=== PATIENT | female | born 1945 | race Caucasian/White ===

== ENCOUNTER 2017-11-17 15:59 | Emergency (ER) | payer MEDICARE ==
[2017-11-17 16:12] VITALS: BP 188/84; PULSE 99; RESP 18; TEMP 98.5
--- NOTE | 2017-11-17 16:39 | ED ---
ENT HPI - General Chief complaint: ENT Stated complaint: ENT Time Seen by Provider: 11/17/17 16:20 Source: patient, RN notes reviewed Mode of arrival: ambulatory Limitations: no limitations - History of Present Illness Initial comments: This is a 72-year-old female who presents to the emergency department with chief complaint of oral fungal infection. Patient states that she developed white sores in her mouth and was placed on nystatin 3 days ago. She states that she's been taking this medication daily for 3 days and has noted no improvement. She also complains of sores on bilateral lip creases. She states that she would like an oral antifungal medication. Denies fever, chills, chest pain, shortness of breath, abdominal pain, nausea or vomiting, constipation or diarrhea, dysuria or hematuria, numbness or tingling, headache or vision changes. - Related Data Previous Rx's Medication Instructions Recorded Fluconazole [Diflucan] 100 mg PO DAILY #14 tab 11/17/17 Allergies Allergy/AdvReac Type Severity Reaction Status Date / Time No Known Allergies Allergy Verified 11/17/17 16:12 Review of Systems ROS Statement: Those systems with pertinent positive or pertinent negative responses have been documented in the HPI. ROS Other: All systems not noted in ROS Statement are negative. Past Medical History Past Medical History: Hypertension History of Any Multi-Drug Resistant Organisms: None Reported Past Surgical History: No Surgical Hx Reported Past Psychological History: No Psychological Hx Reported Smoking Status: Never smoker Past Alcohol Use History: None Reported Past Drug Use History: None Reported General Exam - General Exam Comments Initial Comments: General: Awake and alert, well-developed; in no apparent distress. HEENT: Head atraumatic, normocephalic. Pupils are equal, round and reactive to light. Extraocular movements intact. Oropharynx moist without erythema. White, curd-like plaques at the base of the tongue. Erythema bilateral oral commissures. Neck: Supple. Normal ROM. Cardiovascular: Regular rate and rhythm. No murmurs, rubs or gallops. Chest symmetrical. Respiratory: Lungs clear to auscultation bilaterally. No wheezes, rales or rhonchi. Normal respiratory effort with no use of accessory muscles. Musculoskeletal: Normal ROM, no tenderness bilateral upper and lower extremities. Ambulating normally. Skin: [place], warm and dry without rashes or lesions. Neurological: Alert and oriented x3. CN II-XII grossly intact. Speech is fluent and answers are appropriate. No focal neuro deficits. Psychiatric: Normal mood and affect. No overt signs of depression or anxiety noted. Limitations: no limitations Course Vital Signs 11/17/17 16:08 Temperature 98.5 F Pulse Rate 99 Respiratory 18 Rate Blood Pressure 188/84 O2 Sat by Pulse 100 Oximetry Medical Decision Making - Medical Decision Making This is a 72-year-old female who presents to the emergency department with chief complaint of thrush. Patient states she was started on nystatin suspension 3 days ago and feels like it is not working. She requests to have an oral medication. On physical examination, there is mild white-like plaques on the base of the tongue with angular chelitis noted. Patient will be started on Diflucan. Patient is in no acute distress and will be discharged home at this time. She is in agreement with plan and voices understanding. All questions answered. Disposition Clinical Impression: Oral thrush Disposition: HOME SELF-CARE Condition: Good Instructions: Oral Candidiasis (ED) Additional Instructions: Please take medications as prescribed. Please follow up with primary care provider within 1-2 days. Return to emergency department if symptoms should worsen or any concerns arise. Prescriptions: Fluconazole [Diflucan] 100 mg PO DAILY #14 tab Is patient prescribed a controlled substance at d/c from ED?: No Referrals: Chano Reeves MD [Primary Care Provider] - 1-2 days Time of Disposition: 16:42
== END 2017-11-17 16:50 | disposition home or self-care (01) ==
LOC: EC 15:59
DX: B37.0 Candidal stomatitis (principal)
CPT/HCPCS: 99282

== ENCOUNTER 2018-05-27 03:36 | Emergency (ER) | payer MEDICARE ==
--- NOTE | 2018-05-27 04:00 | ED ---
General Adult HPI - General Chief complaint: Recheck/Abnormal Lab/Rx Stated complaint: Not feeling well Time Seen by Provider: 05/27/18 03:59 Source: patient Mode of arrival: ambulatory Limitations: no limitations - History of Present Illness Initial comments: Katy is a pleasant 72-year-old female who presents to the ER with a complaint that she has not been able to sleep for 2 days duration because she constantly feels the urge to urinate. She reports urinary frequency and mild dysuria. [place] any associated fevers, chills, nausea or vomiting. She can't recall the last time she had a urinary tract infection. She does not follow with the urologist. She reports that she's been up all night urinating every 5 minutes and just feels overwhelmingly fatigued from this. - Related Data Previous Rx's Medication Instructions Recorded Fluconazole [Diflucan] 100 mg PO DAILY #14 tab 11/17/17 Nitrofurantoin Monohyd/M-Cryst 100 mg PO Q12HR 5 Days #10 cap 05/27/18 [Macrobid] Phenazopyridine HCl [Pyridium] 100 mg PO TID #9 tab 05/27/18 Allergies Allergy/AdvReac Type Severity Reaction Status Date / Time antibiotics AdvReac Unknown Uncoded 05/27/18 03:53 Review of Systems ROS Statement: Those systems with pertinent positive or pertinent negative responses have been documented in the HPI. ROS Other: All systems not noted in ROS Statement are negative. Past Medical History Past Medical History: Hypertension History of Any Multi-Drug Resistant Organisms: None Reported Past Surgical History: No Surgical Hx Reported Past Psychological History: No Psychological Hx Reported Smoking Status: Never smoker Past Alcohol Use History: None Reported Past Drug Use History: None Reported General Exam - General Exam Comments Initial Comments: Physical Exam GENERAL: Patient is well-developed and well-nourished. Patient is nontoxic and well- hydrated and is in no distress. HENT: Normocephalic, Atraumatic. EYES: PERRL, EOMI PULMONARY: Unlabored respirations. No audible rales rhonchi or wheezing was noted. CARDIOVASCULAR: There is a regular rate and rhythm without any murmurs gallops or rubs. ABDOMEN: Soft and nontender with normal bowel sounds. No flank pain SKIN: Skin is clear with no lesions or rashes and otherwise unremarkable. : Deferred NEUROLOGIC: Patient is alert and oriented x3. Moving all extremities spontaneously MUSCULOSKELETAL: Normal extremities with adequate strength and full range of motion. No lower extremity swelling or edema. No calf tenderness. PSYCHIATRIC: Normal psychiatric evaluation. Limitations: no limitations Limitations: no limitations Course Vital Signs 05/27/18 05/27/18 03:46 05:24 Temperature 98.4 F 98 F Pulse Rate 72 76 Respiratory 16 19 Rate Blood Pressure 187/76 166/98 O2 Sat by Pulse 99 99 Oximetry Medical Decision Making - Medical Decision Making The patient was seen and evaluated, history was obtained from the patient Patient with urinary frequency, hesitancy and dysuria Urinalysis is suggestive of urinary tract infection A sign patient requesting medication to help her sleep, advised her that we'll start antibiotics and treat her with Pyridium for the dysuria which will make her much more comfortable and her to sleep. Dose of Macrobid and Pyridium given in the emergency department Patient was advised to drink plenty of fluids stay well-hydrated. Return parameters were discussed patient was discharged home in stable condition with prescriptions for Pyridium and Macrobid. - Lab Data Result diagrams: 05/27/18 04:50 Lab Results 05/27/18 05/27/18 05/27/18 Range/Units 04:30 04:50 04:50 WBC 7.7 (3.8-10.6) k/uL RBC 4.62 (3.80-5.40) m/uL Hgb 13.6 (11.4-16.0) gm/dL Hct 40.8 (34.0-46.0) % MCV 88.4 (80.0-100.0) fL MCH 29.5 (25.0-35.0) pg MCHC 33.4 (31.0-37.0) g/dL RDW 12.4 (11.5-15.5) % Plt Count 206 (150-450) k/uL Neutrophils % 78 % Lymphocytes % 15 % Monocytes % 5 % Eosinophils % 1 % Basophils % 0 % Neutrophils # 6.0 (1.3-7.7) k/uL Lymphocytes # 1.1 (1.0-4.8) k/uL Monocytes # 0.4 (0-1.0) k/uL Eosinophils # 0.1 (0-0.7) k/uL Basophils # 0.0 (0-0.2) k/uL NT-Pro-B Natriuret Pep 285 pg/mL Urine Color Light Yellow Urine Appearance Clear (Clear) Urine pH 5.5 (5.0-8.0) Ur Specific [place] 1.014 (1.001-1.035) Urine Protein Negative (Negative) Urine Glucose (UA) 3+ H (Negative) Urine Ketones Negative (Negative) Urine Blood Negative (Negative) Urine Nitrite Negative (Negative) Urine Bilirubin Negative (Negative) Urine Urobilinogen <2.0 (<2.0) mg/dL Ur Leukocyte Esterase Moderate H (Negative) Urine RBC 1 (0-5) /hpf Urine WBC 17 H (0-5) /hpf Ur Squamous Epith Cells <1 (0-4) /hpf Hyaline Casts 1 (0-2) /lpf Urine Mucus Rare H (None) /hpf Disposition Clinical Impression: UTI (urinary tract infection) Disposition: HOME SELF-CARE Condition: Good Prescriptions: Nitrofurantoin Monohyd/M-Cryst [Macrobid] 100 mg PO Q12HR 5 Days #10 cap Phenazopyridine HCl [Pyridium] 100 mg PO TID #9 tab Is patient prescribed a controlled substance at d/c from ED?: No Referrals: None,Stated [REFERRING] - 1-2 days
[2018-05-27 04:41] LABS: Appearance,Urine Clear (Clear); Bilirubin,Urine Negative (Negative); Blood,Urine Negative (Negative); Color,Urine Light Yellow; Glucose,Urine (UA) 3+ (Negative); Hyaline Casts,Urine 1 /lpf (0-2); Ketones,Urine Negative (Negative); Leukocyte Esterase,Urine Moderate (Negative); Mucus,Urine Rare /hpf; Nitrite,Urine Negative (Negative); PH, Urine 5.5 (5.0-8.0); Protein,Urine Negative (Negative); RBC,Urine 1 /hpf (0-5); Specific Gravity,Urine 1.014 (1.001-1.035); Squamous Epithelial Cell,Urine <1 /hpf (0-4); Urobilinogen,Urine <2.0 mg/dL (<2.0); WBC,Urine 17 /hpf (0-5)
[2018-05-27] MEDS ORDERED: NITROFURANTOIN MONOHYD/M-CRYST 100 MG CAP PO STA (04:51)
[2018-05-27] MEDS ORDERED: PHENAZOPYRIDINE 100 MG TAB PO STA (05:02)
[2018-05-27 05:10] LABS: Basophils % (A) 0 %; Eosinophils # (A) 0.1 k/uL (0-0.7); Eosinophils % (A) 1 %; HCT 40.8 % (34.0-46.0); HGB 13.6 gm/dL (11.4-16.0); Lymphocytes # (A) 1.1 k/uL (1.0-4.8); Lymphocytes % (A) 15 %; MCH 29.5 pg (25.0-35.0); MCHC 33.4 g/dL (31.0-37.0); MCV 88.4 fL (80.0-100.0); Mean Platelet Volume 6.2; Monocytes # (A) 0.4 k/uL (0-1.0); Monocytes % (A) 5 %; Neutrophils % (A) 78 %; Platelet Count 206 k/uL (150-450); RBC 4.62 m/uL (3.80-5.40); RDW 12.4 % (11.5-15.5); WBC 7.7 k/uL (3.8-10.6)
[2018-05-27 05:36] VITALS: BP 166/98; PULSE 76; RESP 19; TEMP 98
== END 2018-05-27 05:25 | disposition home or self-care (01) ==
LOC: EC 03:36
DX: N39.0 Urinary tract infection, site not specified (principal); R53.83 Other fatigue; Z88.1 Allergy status to other antibiotic agents
CPT/HCPCS: 36415; 81001; 83880; 85025; 99283

== ENCOUNTER 2018-05-30 07:40 | Emergency (ER) | payer MEDICARE ==
[2018-05-30 07:55] VITALS: PULSE 93; RESP 18; TEMP 98.6
[2018-05-30] MEDS ORDERED: ONDANSETRON 4 MG/2 ML VIAL IVP STA (08:09)
[2018-05-30] MEDS ORDERED: PANTOPRAZOLE 40 MG/10 ML VIAL IVP STA (08:09)
[2018-05-30] MEDS ORDERED: SODIUM CHLORIDE 0.9% 1,000 ML IV STA (08:09)
[2018-05-30] MEDS ORDERED: MORPHINE SULFATE 4 MG/ML SYRINGE IV STA (08:09)
--- NOTE | 2018-05-30 08:09 | ED ---
Abdominal Pain HPI - General Chief Complaint: Abdominal Pain Stated Complaint: UTI Time Seen by Provider: 05/30/18 07:52 Source: patient, EMS, RN notes reviewed, old records reviewed Mode of arrival: EMS Limitations: no limitations - History of Present Illness Initial Comments: This is a 72-year-old female the ER for evaluation. Patient was essay for evaluation of nonspecific abdominal pain difficulty sleeping. Patient has no significant surgical history no nausea vomiting no fevers no diarrheal issues or difficulty with urination. Patient was recently treated for urinary tract infection, no other recent medication changes. Patient does admit to some anxiety and difficulty sleeping secondary to anxiety. MD Complaint: abdominal pain -: week(s), month(s) Location: diffuse Radiation: none Migration to: no migration Severity: mild Severity scale (1-10): 2 Quality: aching Consistency: intermittent, now resolved Improves With: nothing Worsens With: nothing Associated Symptoms: nausea - Related Data Previous Rx's Medication Instructions Recorded Fluconazole [Diflucan] 100 mg PO DAILY #14 tab 11/17/17 Nitrofurantoin Monohyd/M-Cryst 100 mg PO Q12HR 5 Days #10 cap 05/27/18 [Macrobid] Phenazopyridine HCl [Pyridium] 100 mg PO TID #9 tab 05/27/18 Allergies Allergy/AdvReac Type Severity Reaction Status Date / Time antibiotics AdvReac Unknown Uncoded 05/27/18 03:53 Review of Systems ROS Statement: Those systems with pertinent positive or pertinent negative responses have been documented in the HPI. ROS Other: All systems not noted in ROS Statement are negative. Past Medical History Past Medical History: Hypertension History of Any Multi-Drug Resistant Organisms: None Reported Past Surgical History: No Surgical Hx Reported Past Psychological History: No Psychological Hx Reported Smoking Status: Never smoker Past Alcohol Use History: None Reported Past Drug Use History: None Reported General Exam Limitations: no limitations General appearance: alert, in no apparent distress Head exam: Present: atraumatic, normocephalic, normal inspection Eye exam: Present: normal appearance, PERRL, EOMI. Absent: scleral icterus, conjunctival injection, periorbital swelling ENT exam: Present: normal exam, mucous membranes moist Neck exam: Present: normal inspection. Absent: tenderness, meningismus, lymphadenopathy Respiratory exam: Present: normal lung sounds bilaterally. Absent: respiratory distress, wheezes, rales, rhonchi, stridor Cardiovascular Exam: Present: regular rate, normal rhythm, normal heart sounds. Absent: systolic murmur, diastolic murmur, rubs, gallop, clicks GI/Abdominal exam: Present: soft, normal bowel sounds. Absent: distended, tenderness, guarding, rebound, rigid Extremities exam: Present: normal inspection, full ROM, normal capillary refill. Absent: tenderness, pedal edema, joint swelling, calf tenderness Back exam: Present: normal inspection Neurological exam: Present: alert, oriented X3, CN II-XII intact Psychiatric exam: Present: normal affect, normal mood Skin exam: Present: warm, dry, intact, normal color. Absent: rash Course Vital Signs 05/30/18 07:52 Temperature 98.6 F Pulse Rate 93 Respiratory 18 Rate Blood Pressure 170/86 O2 Sat by Pulse 99 Oximetry - Reevaluation(s) Reevaluation #1: 05/30/18 10:37 Medical record is reviewed Reevaluation #2: 05/30/18 10:37 Spoke with patient at length, patient at this time is admitting is having anxiety and difficulty sleeping. We'll treat patient appropriately Medical Decision Making - Medical Decision Making 72-year-old female the ER for evaluation nonspecific abdominal pain. Likely anxiety related in nature with difficulty sleeping. Patient be discharged home to follow-up with family care for further evaluation of mental health - Lab Data Result diagrams: 05/30/18 08:31 05/30/18 08:31 Lab Results 05/30/18 05/30/18 05/30/18 Range/Units 08:23 08:31 08:31 WBC (3.8-10.6) k/uL RBC (3.80-5.40) m/uL Hgb (11.4-16.0) gm/dL Hct (34.0-46.0) % MCV (80.0-100.0) fL MCH (25.0-35.0) pg MCHC (31.0-37.0) g/dL RDW (11.5-15.5) % Plt Count (150-450) k/uL Neutrophils % % Lymphocytes % % Monocytes % % Eosinophils % % Basophils % % Neutrophils # (1.3-7.7) k/uL Lymphocytes # (1.0-4.8) k/uL Monocytes # (0-1.0) k/uL Eosinophils # (0-0.7) k/uL Basophils # (0-0.2) k/uL Sodium 136 L (137-145) mmol/L Potassium 4.5 (3.5-5.1) mmol/L Chloride 103 (98-107) mmol/L Carbon Dioxide 23 (22-30) mmol/L Anion Gap 10 mmol/L BUN 23 H (7-17) mg/dL Creatinine 0.67 (0.52-1.04) mg/dL Est GFR (CKD-EPI)AfAm >90 (>60 ml/min/1.73 sqM) Est GFR (CKD-EPI)NonAf 90 (>60 ml/min/1.73 sqM) Glucose 217 H (74-99) mg/dL Plasma Lactic Acid [place] (0.7-2.0) mmol/L Calcium 9.8 (8.4-10.2) mg/dL Phosphorus 3.6 (2.5-4.5) mg/dL Magnesium 1.7 (1.6-2.3) mg/dL Total Bilirubin 0.3 (0.2-1.3) mg/dL AST 19 (14-36) U/L ALT 20 (9-52) U/L Alkaline Phosphatase 62 (38-126) U/L Total Creatine Kinase 31 (30-135) U/L CK-MB (CK-2) 0.7 (0.0-2.4) ng/mL CK-MB (CK-2) Rel Index 2.3 Troponin I <0.012 (0.000-0.034) ng/mL Total Protein 6.9 (6.3-8.2) g/dL Albumin 3.9 (3.5-5.0) g/dL Amylase 71 (30-110) U/L Lipase 294 (23-300) U/L Urine Color Light Yellow Urine Appearance Clear (Clear) Urine pH 5.5 (5.0-8.0) Ur Specific [place] 1.008 (1.001-1.035) Urine Protein Negative (Negative) Urine Glucose (UA) 3+ H (Negative) Urine Ketones Negative (Negative) Urine Blood Negative (Negative) Urine Nitrite Negative (Negative) Urine Bilirubin Negative (Negative) Urine Urobilinogen <2.0 (<2.0) mg/dL Ur Leukocyte Esterase Moderate H (Negative) Urine RBC 1 (0-5) /hpf Urine WBC 1 (0-5) /hpf Ur Squamous Epith Cells <1 (0-4) /hpf Urine Mucus Rare H (None) /hpf 05/30/18 05/30/18 Range/Units 08:31 08:31 WBC 8.0 (3.8-10.6) k/uL RBC 4.72 (3.80-5.40) m/uL Hgb 13.7 (11.4-16.0) gm/dL Hct 42.1 (34.0-46.0) % MCV 89.2 (80.0-100.0) fL MCH 29.0 (25.0-35.0) pg MCHC 32.5 (31.0-37.0) g/dL RDW 12.5 (11.5-15.5) % Plt Count 226 (150-450) k/uL Neutrophils % 77 % Lymphocytes % 15 % Monocytes % 5 % Eosinophils % 1 % Basophils % 0 % Neutrophils # 6.1 (1.3-7.7) k/uL Lymphocytes # 1.2 (1.0-4.8) k/uL Monocytes # 0.4 (0-1.0) k/uL Eosinophils # 0.1 (0-0.7) k/uL Basophils # 0.0 (0-0.2) k/uL Sodium (137-145) mmol/L Potassium (3.5-5.1) mmol/L Chloride (98-107) mmol/L Carbon Dioxide (22-30) mmol/L Anion Gap mmol/L BUN (7-17) mg/dL Creatinine (0.52-1.04) mg/dL Est GFR (CKD-EPI)AfAm (>60 ml/min/1.73 sqM) Est GFR (CKD-EPI)NonAf (>60 ml/min/1.73 sqM) Glucose (74-99) mg/dL Plasma Lactic Acid [place] 1.1 (0.7-2.0) mmol/L Calcium (8.4-10.2) mg/dL Phosphorus (2.5-4.5) mg/dL Magnesium (1.6-2.3) mg/dL Total Bilirubin (0.2-1.3) mg/dL AST (14-36) U/L ALT (9-52) U/L Alkaline Phosphatase (38-126) U/L Total Creatine Kinase (30-135) U/L CK-MB (CK-2) (0.0-2.4) ng/mL CK-MB (CK-2) Rel Index Troponin I (0.000-0.034) ng/mL Total Protein (6.3-8.2) g/dL Albumin (3.5-5.0) g/dL Amylase (30-110) U/L Lipase (23-300) U/L Urine Color Urine Appearance (Clear) Urine pH (5.0-8.0) Ur Specific [place] (1.001-1.035) Urine Protein (Negative) Urine Glucose (UA) (Negative) Urine Ketones (Negative) Urine Blood (Negative) Urine Nitrite (Negative) Urine Bilirubin (Negative) Urine Urobilinogen (<2.0) mg/dL Ur Leukocyte Esterase (Negative) Urine RBC (0-5) /hpf Urine WBC (0-5) /hpf Ur Squamous Epith Cells (0-4) /hpf Urine Mucus (None) /hpf - Radiology Data Radiology results: report reviewed (CT abdomen pelvis is negative for acute disease), image reviewed Disposition Clinical Impression: Abdominal pain, Anxiety Disposition: HOME SELF-CARE Condition: Good Instructions: Abdominal Pain (ED), Anxiolysis in Adults (ED) Is patient prescribed a controlled substance at d/c from ED?: No Referrals: Chano Reeves MD [Primary Care Provider] - 1-2 days
[2018-05-30 09:08] LABS: Basophils % (A) 0 %; Eosinophils # (A) 0.1 k/uL (0-0.7); Eosinophils % (A) 1 %; HCT 42.1 % (34.0-46.0); HGB 13.7 gm/dL (11.4-16.0); Lymphocytes # (A) 1.2 k/uL (1.0-4.8); Lymphocytes % (A) 15 %; MCHC 32.5 g/dL (31.0-37.0); MCV 89.2 fL (80.0-100.0); Mean Platelet Volume 6.5; Monocytes # (A) 0.4 k/uL (0-1.0); Monocytes % (A) 5 %; Neutrophils # (A) 6.1 k/uL (1.3-7.7); Neutrophils % (A) 77 %; Platelet Count 226 k/uL (150-450); RBC 4.72 m/uL (3.80-5.40); RDW 12.5 % (11.5-15.5)
[2018-05-30 09:10] LABS: ALT 20 U/L (9-52); AST 19 U/L (14-36); Albumin 3.9 g/dL (3.5-5.0); Alkaline Phosphatase 62 U/L (38-126); Amylase 71 U/L (30-110); Anion Gap 10 mmol/L; Blood Urea Nitrogen 23 mg/dL (7-17); Calcium 9.8 mg/dL (8.4-10.2); Carbon Dioxide 23 mmol/L (22-30); Chloride 103 mmol/L (98-107); Glucose 217 mg/dL (74-99); Lipase 294 U/L (23-300); Magnesium 1.7 mg/dL (1.6-2.3); Phosphorus 3.6 mg/dL (2.5-4.5); Sodium 136 mmol/L (137-145); Total Bilirubin 0.3 mg/dL (0.2-1.3); Total Protein 6.9 g/dL (6.3-8.2)
[2018-05-30 09:18] LABS: Appearance,Urine Clear (Clear); Bilirubin,Urine Negative (Negative); Blood,Urine Negative (Negative); Color,Urine Light Yellow; Glucose,Urine (UA) 3+ (Negative); Ketones,Urine Negative (Negative); Leukocyte Esterase,Urine Moderate (Negative); Mucus,Urine Rare /hpf; Nitrite,Urine Negative (Negative); PH, Urine 5.5 (5.0-8.0); Protein,Urine Negative (Negative); RBC,Urine 1 /hpf (0-5); Specific Gravity,Urine 1.008 (1.001-1.035); Squamous Epithelial Cell,Urine <1 /hpf (0-4); Urobilinogen,Urine <2.0 mg/dL (<2.0); WBC,Urine 1 /hpf (0-5)
[2018-05-30 09:24] LABS: Potassium 4.5 mmol/L (3.5-5.1)
[2018-05-30 09:27] LABS: Creatine Kinase 31 U/L (30-135)
[2018-05-30 09:39] LABS: Creatine Kinase MB 0.7 ng/mL (0.0-2.4); Troponin I <0.012 ng/mL (0.000-0.034)
--- NOTE | 2018-05-30 10:10 | CT ---
EXAMINATION TYPE: CT abdomen pelvis w con DATE OF EXAM: 05/30/2018 HISTORY: UTI, distention, RUQ pain CT DLP: 721.3mGycm Automated Exposure Control for Dose Reduction was Utilized. CONTRAST: CT scan of the abdomen and pelvis is performed without oral but with IV Contrast, patient injected wi th 100 mL of Isovue 300. COMPARISON: None FINDINGS: LUNG BASES: There is patchy bibasilar linear scarring and/or atelectasis. LIVER/GB: No significant abnormality is appreciated. PANCREAS: No significant abnormality is seen. SPLEEN: No significant abnormality is seen. ADRENALS: No significant abnormality is seen. KIDNEYS: There is symmetric cortical medullary uptake and excretion from both kidneys without evidenc e of hydronephrosis bilaterally. Bilateral extrarenal pelvises are seen without calyceal dilatation. Bladder is mildly distended without intraluminal mass or calculus. BOWEL: No significant abnormality is seen. UTERUS/ADNEXA: Anteverted uterus is seen. Within left ovary there is 1.4 cm low dense lesion axial im age 74, this is abnormal finding in postmenopausal female and nonemergent pelvic ultrasound follow-up is advised as cystic neoplasm cannot be excluded. LYMPH NODES: No greater than 1cm abdominal or pelvic lymph nodes are appreciated. OSSEOUS STRUCTURES: There is mild multilevel disc space narrowing and vacuum disc phenomenon in the l umbar spine. There is facet arthropathy lower lumbar levels. Disc herniations L4-L5 and L5-S1 level a re seen. OTHER: Mild calcified plaque of aorta extends into branch vessels. There is tiny fat-containing umbil ical hernia IMPRESSION: 1. No significant acute finding is seen to account for patient's clinical symptoms. 2. A 1.4 cm low dense lesion left ovary requires nonemergent follow-up including pelvic ultrasound to rule out neoplasm.
[2018-05-30 11:17] VITALS: BP 109/93
== END 2018-05-30 11:17 | disposition home or self-care (01) ==
LOC: EC 07:40
DX: F41.9 Anxiety disorder, unspecified (principal); Z88.1 Allergy status to other antibiotic agents; Z53.20 Procedure and treatment not carried out because of patient's decision for unspecified reasons
CPT/HCPCS: 36415; 80053; 82150; 82550; 82553; 83605; 83690; 83735; 84100; 84484; 85025; 81001; 87086; 74177; 99285; 96374; 96361; C9113; Q9967

== ENCOUNTER 2018-07-11 14:06 | Emergency (ER) | payer MEDICARE ==
[2018-07-11] MEDS ORDERED: SODIUM CHLORIDE 0.9% 1,000 ML IV STA (15:24)
[2018-07-11 16:05] LABS: Appearance,Urine Clear (Clear); Bilirubin,Urine Negative (Negative); Blood,Urine Small (Negative); Color,Urine Light Yellow; Glucose,Urine (UA) 1+ (Negative); Ketones,Urine Negative (Negative); Leukocyte Esterase,Urine Trace (Negative); Mucus,Urine Rare /hpf; Nitrite,Urine Negative (Negative); Protein,Urine Negative (Negative); RBC,Urine 10 /hpf (0-5); Specific Gravity,Urine 1.013 (1.001-1.035); Squamous Epithelial Cell,Urine 1 /hpf (0-4); Urobilinogen,Urine <2.0 mg/dL (<2.0); WBC,Urine 1 /hpf (0-5)
[2018-07-11 16:07] LABS: Albumin 4.3 g/dL (3.5-5.0); Potassium 4.7 mmol/L (3.5-5.1); Total Bilirubin 0.2 mg/dL (0.2-1.3); Total Protein 7.2 g/dL (6.3-8.2)
[2018-07-11 16:12] LABS: Basophils % (A) 1 %; Eosinophils # (A) 0.2 k/uL (0-0.7); Eosinophils % (A) 2 %; HCT 40.6 % (34.0-46.0); HGB 13.6 gm/dL (11.4-16.0); Lymphocytes # (A) 1.3 k/uL (1.0-4.8); Lymphocytes % (A) 16 %; MCH 29.9 pg (25.0-35.0); MCHC 33.5 g/dL (31.0-37.0); MCV 89.2 fL (80.0-100.0); Mean Platelet Volume 6.5; Monocytes # (A) 0.3 k/uL (0-1.0); Monocytes % (A) 4 %; Neutrophils # (A) 6.1 k/uL (1.3-7.7); Neutrophils % (A) 75 %; Platelet Count 230 k/uL (150-450); RBC 4.55 m/uL (3.80-5.40); RDW 12.9 % (11.5-15.5); WBC 8.1 k/uL (3.8-10.6)
--- NOTE | 2018-07-11 17:06 | US ---
EXAMINATION TYPE: US transvaginal DATE OF EXAM: 07/11/2018 COMPARISON: CT 2018 CLINICAL HISTORY: Pain. 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 Transvaginal sonographic images were medically necessary to better ass ess the following anatomy: left ovary. Date of LMP: age 60 per patient EXAM MEASUREMENTS: Uterus: 6.7 x 3.9 x 1.6cm cm Endometrial Stripe: 0.5 cm Right Ovary: not seen Left Ovary: 2.9 x 2.2 x 2.0 cm 1. Uterus: Anteverted; couple of small Nabothian Cysts in cervix; couple of small calcifications wit hin uterus 2. Endometrium: thickness is wnl for post menopause 3. Right Ovary: not seen by TV US and per patient history 4. Left Ovary: follicular cyst = 2.3 x 1.6 x 1.4cm Spectral, color and waveform doppler imaging shows good arterial and venous flow within the left ov ajith; there is no evidence for ovarian torsion. 5. Bilateral Adnexa: wnl 6. Posterior cul-de-sac: wnl IMPRESSION: No evidence of ovarian torsion. No endometrial thickening. There is a dominant left ovari an cyst. No solid adnexal mass. Left ovarian cyst measures 1.5 cm on the old CT scan 05/30/2018 exam is slightly increased on today's exam.
--- NOTE | 2018-07-11 17:52 | ED ---
General Adult HPI <José Chappell - Last Filed: 07/11/18 18:32> - General Source: patient, RN notes reviewed Mode of arrival: ambulatory Limitations: no limitations <Chas Urban - Last Filed: 07/11/18 18:59> - General Chief complaint: Urogenital Stated complaint: Pelvic pain Time Seen by Provider: 07/11/18 14:56 - History of Present Illness Initial comments: 72-year-old female presents to the emergency department for left-sided pelvic pain 2 months. Patient states she may have an ovarian cyst. She states it is a dull aching pain. She states it is worse when she presses deeply on her lower abdomen. She states she is passing gas and stool normally. She denies any nausea or vomiting. She denies any other abdominal pain. Patient states her primary care provider gave her a prescription for an outpatient ultrasound but patient could not do this during the week so decided to come to the ER on the weekend to have this done. Patient has no other complaints at this time including shortness of breath, chest pain, nausea or vomiting, headache, or visual changes. (Chas Urban) - Related Data Previous Rx's Medication Instructions Recorded Fluconazole [Diflucan] 100 mg PO DAILY #14 tab 11/17/17 Nitrofurantoin Monohyd/M-Cryst 100 mg PO Q12HR 5 Days #10 cap 05/27/18 [Macrobid] Phenazopyridine HCl [Pyridium] 100 mg PO TID #9 tab 05/27/18 Diazepam [Valium] 5 mg PO Q8HR PRN 3 Days #9 tab 05/30/18 Allergies Allergy/AdvReac Type Severity Reaction Status Date / Time No Known Allergies Allergy Verified 07/11/18 16:01 Review of Systems ROS Other: All systems not noted in ROS Statement are negative. <José Chappell - Last Filed: 07/11/18 18:32> ROS Other: All systems not noted in ROS Statement are negative. <Chas Urban - Last Filed: 07/11/18 18:59> ROS Statement: Those systems with pertinent positive or pertinent negative responses have been documented in the HPI. Past Medical History Past Medical History: Hypertension History of Any Multi-Drug Resistant Organisms: None Reported Past Surgical History: No Surgical Hx Reported Past Psychological History: No Psychological Hx Reported Smoking Status: Never smoker Past Alcohol Use History: None Reported Past Drug Use History: None Reported <RajniChas Ledezma - Last Filed: 07/11/18 18:59> General Exam Limitations: no limitations General appearance: alert, in no apparent distress Head exam: Present: atraumatic, normocephalic, normal inspection Eye exam: Present: normal appearance, PERRL, EOMI. Absent: scleral icterus, conjunctival injection, periorbital swelling ENT exam: Present: normal exam, mucous membranes moist Neck exam: Present: normal inspection, full ROM. Absent: tenderness, meningismus, lymphadenopathy Respiratory exam: Present: normal lung sounds bilaterally. Absent: respiratory distress, wheezes, rales, rhonchi, stridor Cardiovascular Exam: Present: regular rate, normal rhythm, normal heart sounds. Absent: systolic murmur, diastolic murmur, rubs, gallop, clicks GI/Abdominal exam: Present: soft, tenderness (no tenderness in RUQ, LUQ, or RLQ , patient has no tenderness on light palpation of LLQ. On very deep palpation patient does have minimal tenderness noted in LLQ), normal bowel sounds. Absent : distended, guarding, rebound, rigid Neurological exam: Present: alert, oriented X3, CN II-XII intact Psychiatric exam: Present: normal affect, normal mood <Chas Urban - Last Filed: 07/11/18 18:59> Course <José Chappell - Last Filed: 07/11/18 18:32> <Chas Urban P - Last Filed: 07/11/18 18:59> Vital Signs 07/11/18 07/11/18 14:49 18:36 Temperature 98.2 F 98.0 F Pulse Rate 100 80 Respiratory 16 18 Rate Blood Pressure 137/77 108/61 O2 Sat by Pulse 98 99 Oximetry - Reevaluation(s) Reevaluation #1: 07/11/18 18:33 PA supervision: I proceeded [id number] evaluation patient did discuss findings with her and her . Patient does demonstrate evidence of a ovarian cyst her pain is much improved this time she will be discharged and follow-up with her doctor. I do agree with the assessment and plan. Patient be given copies of the report as well as a disc with the ultrasound on it. (José Chappell) Medical Decision Making - Lab Data Result diagrams: 07/11/18 15:35 07/11/18 15:35 <José Chappell - Last Filed: 07/11/18 18:32> - Lab Data Result diagrams: 07/11/18 15:35 07/11/18 15:35 <Chas Urban - Last Filed: 07/11/18 18:59> - Medical Decision Making 72-year-old female with a past history of hypertension presents for ultrasound. Patient has an outpatient ultrasound prescription but states she could not get in during the week to get this done so would like to get this done through the emergency department. Patient has had left lower quadrant pain for the past 2 months. On exam patient has minimal left lower quadrant tenderness. There is no tenderness on light palpation. Patient states it pushed very hard to elicit tenderness. Exam generally unremarkable. CT done 05/30/18 shows a 1.4 cm lesion of the left ovary. At this time he did recommend pelvic ultrasound to rule out neoplasm. CBC CMP amylase and lipase are unremarkable. Ultrasound was done today as patient is requesting this. It shows no evidence of ovarian torsion. There is a dominant left ovarian cyst, no mass. This is slightly increased compared to the old computed tomography scan. This is likely cause of patient's pain. Patient was also seen by Dr. Chappell. Patient will follow up with her primary care provider who ordered this has. She was given the printout of the report. She was also given that the disc. She will return if she has any worsening symptoms. Vitals with any syncopal limits. ( Chas Urban) - Lab Data Lab Results 07/11/18 07/11/18 07/11/18 Range/Units 15:35 15:35 15:35 WBC 8.1 (3.8-10.6) k/uL RBC 4.55 (3.80-5.40) m/uL Hgb 13.6 (11.4-16.0) gm/dL Hct 40.6 (34.0-46.0) % MCV 89.2 (80.0-100.0) fL MCH 29.9 (25.0-35.0) pg MCHC 33.5 (31.0-37.0) g/dL RDW 12.9 (11.5-15.5) % Plt Count 230 (150-450) k/uL Neutrophils % 75 % Lymphocytes % 16 % Monocytes % 4 % Eosinophils % 2 % Basophils % 1 % Neutrophils # 6.1 (1.3-7.7) k/uL Lymphocytes # 1.3 (1.0-4.8) k/uL Monocytes # 0.3 (0-1.0) k/uL Eosinophils # 0.2 (0-0.7) k/uL Basophils # 0.0 (0-0.2) k/uL Sodium 137 (137-145) mmol/L Potassium 4.7 (3.5-5.1) mmol/L Chloride 102 (98-107) mmol/L Carbon Dioxide 25 (22-30) mmol/L Anion Gap 10 mmol/L BUN 22 H (7-17) mg/dL Creatinine 0.79 (0.52-1.04) mg/dL Est GFR (CKD-EPI)AfAm 89 (>60 ml/min/1.73 sqM) Est GFR (CKD-EPI)NonAf 77 (>60 ml/min/1.73 sqM) Glucose 203 H (74-99) mg/dL Calcium 10.0 (8.4-10.2) mg/dL Total Bilirubin 0.2 (0.2-1.3) mg/dL AST 25 (14-36) U/L ALT 47 (9-52) U/L Alkaline Phosphatase 69 (38-126) U/L Total Protein 7.2 (6.3-8.2) g/dL Albumin 4.3 (3.5-5.0) g/dL Amylase 52 (30-110) U/L Lipase 191 (23-300) U/L Urine Color Light Yellow Urine Appearance Clear (Clear) Urine pH 5.0 (5.0-8.0) Ur Specific [place] 1.013 (1.001-1.035) Urine Protein Negative (Negative) Urine Glucose (UA) 1+ H (Negative) Urine Ketones Negative (Negative) Urine Blood Small H (Negative) Urine Nitrite Negative (Negative) Urine Bilirubin Negative (Negative) Urine Urobilinogen <2.0 (<2.0) mg/dL Ur Leukocyte Esterase Trace H (Negative) Urine RBC 10 H (0-5) /hpf Urine WBC 1 (0-5) /hpf Ur Squamous Epith Cells 1 (0-4) /hpf Urine Mucus Rare H (None) /hpf Disposition <José Chappell - Last Filed: 07/11/18 18:32> Is patient prescribed a controlled substance at d/c from ED?: No Time of Disposition: 18:13 <Chas Urban - Last Filed: 07/11/18 18:59> Clinical Impression: Ovarian cyst, left Disposition: HOME SELF-CARE Condition: Good Instructions: Ovarian Cyst (ED) Additional Instructions: Please follow-up with your [facility] in 1-2 days. Take Motrin and Tylenol for pain. Return if you have any worsening symptoms. Referrals: Winnie Adams MD [Primary Care Provider] - 1-2 days
[2018-07-11 18:39] VITALS: BP 108/61; PULSE 80; RESP 18; TEMP 98
== END 2018-07-11 18:53 | disposition home or self-care (01) ==
LOC: EC 14:06
DX: N83.202 Unspecified ovarian cyst, left side (principal)
CPT/HCPCS: 36415; 76830; 80053; 81001; 82150; 83690; 85025; 93976; 96360; 99284

== ENCOUNTER 2018-08-27 11:55 | Emergency (ER) | payer MEDICARE ==
[2018-08-27 12:04] VITALS: RESP 18
[2018-08-27] MEDS ORDERED: MECLIZINE 25 MG TAB PO STA (12:57)
--- NOTE | 2018-08-27 13:08 | ED ---
General Adult HPI - General Chief complaint: Upper Respiratory Infection Stated complaint: hypertension/dry cough Time Seen by Provider: 08/27/18 12:00 Source: patient, EMS, RN notes reviewed Mode of arrival: EMS Limitations: no limitations - History of Present Illness Initial comments: This is a 9-year-old female who comes in complaining of dizziness and a dry cough. Patient states the dry cough started about 3 days ago and is getting progressively worse. Patient states she's not short of breath or having any difficulty breathing she just coughing a lot. Patient denies any fever chills per patient denies any sputum production. Patient states that she has been dizzy as well particularly when she moves her head she notices that she feels like the environment is still moving. Patient denies any headache patient denies any numbness weakness. Patient denies any chest pain or palpitations per patient denies abdominal pain patient denies nausea vomiting diarrhea. Patient denies any recent injury or trauma. Patient denies any previous history of vertigo. - Related Data Home Medications Medication Instructions Recorded Confirmed Lisinopril [Zestril] 10 mg PO DAILY 08/27/18 08/27/18 amLODIPine [Norvasc] 2.5 mg PO DAILY 08/27/18 08/27/18 glipiZIDE [Glucotrol] 5 mg PO AC-BID 08/27/18 08/27/18 metFORMIN HCL [Glucophage] 500 mg PO TID 08/27/18 08/27/18 Previous Rx's Medication Instructions Recorded Meclizine [Antivert] 25 mg PO TID #20 tab 08/27/18 Allergies Allergy/AdvReac Type Severity Reaction Status Date / Time No Known Allergies Allergy Verified 08/27/18 12:59 Review of Systems ROS Statement: Those systems with pertinent positive or pertinent negative responses have been documented in the HPI. ROS Other: All systems not noted in ROS Statement are negative. Past Medical History Past Medical History: Hypertension History of Any Multi-Drug Resistant Organisms: None Reported Past Surgical History: Appendectomy Past Psychological History: No Psychological Hx Reported Smoking Status: Never smoker Past Alcohol Use History: None Reported Past Drug Use History: None Reported General Exam - General Exam Comments Initial Comments: GENERAL: Patient is well-developed and well-nourished. Patient is nontoxic and well- hydrated and is in no acute distress. ENT: Neck is soft and supple. No significant lymphadenopathy is noted. Oropharynx is clear. Moist mucous membranes. Neck has full range of motion without eliciting any pain. EYES: The sclera were anicteric and conjunctiva were pink and moist. Extraocular movements were intact and pupils were equal round and reactive to light. Eyelids were unremarkable. No nystagmus is seen PULMONARY: Unlabored respirations. Good breath sounds bilaterally. No audible rales rhonchi or wheezing was noted. CARDIOVASCULAR: There is a regular rate and rhythm without any murmurs gallops or rubs. ABDOMEN: Soft and nontender with normal bowel sounds. No palpable organomegaly was noted. There is no palpable pulsatile mass. SKIN: Skin is clear with no lesions or rashes and otherwise unremarkable. NEUROLOGIC: Patient is alert and oriented x3. Cranial nerves II through XII are grossly intact. Motor and sensory are also intact. Normal speech, volume and content. Symmetrical smile. Cerebellar exam grossly intact. MUSCULOSKELETAL: Normal extremities with adequate strength and full range of motion. LYMPHATICS: No significant lymphadenopathy is noted PSYCHIATRIC: Normal psychiatric evaluation. Limitations: no limitations Course Vital Signs 08/27/18 11:59 Temperature 97.7 F Pulse Rate 96 Respiratory 18 Rate Blood Pressure 157/67 O2 Sat by Pulse 100 Oximetry Medical Decision Making - Medical Decision Making EKG shows normal sinus rhythm at 84 bpm NH interval 236 QRS is 70 QT interval 368 QTC is 434 per patient's EKG shows no ST segment elevation or depression or T wave abnormalities are noted. Patient has no tenderness on the mastoids. CAT scan showed a little fluid in the right mastoid. Chest x-ray showed no acute abnormality. I went back into reevaluate the patient and her dizziness had improved with the vertigo. - Lab Data Result diagrams: 08/27/18 13:25 08/27/18 13:25 Lab Results 08/27/18 08/27/18 08/27/18 Range/Units 13:25 13:25 13:25 WBC 10.4 (3.8-10.6) k/uL RBC 4.44 (3.80-5.40) m/uL Hgb 13.3 (11.4-16.0) gm/dL Hct 40.0 (34.0-46.0) % MCV 90.2 (80.0-100.0) fL MCH 29.9 (25.0-35.0) pg MCHC 33.2 (31.0-37.0) g/dL RDW 12.3 (11.5-15.5) % Plt Count 232 (150-450) k/uL Neutrophils % 86 % Lymphocytes % 8 % Monocytes % 4 % Eosinophils % 1 % Basophils % 0 % Neutrophils # 9.0 H (1.3-7.7) k/uL Lymphocytes # 0.8 L (1.0-4.8) k/uL Monocytes # 0.4 (0-1.0) k/uL Eosinophils # 0.1 (0-0.7) k/uL Basophils # 0.0 (0-0.2) k/uL PT (9.0-12.0) sec INR (<1.2) APTT (22.0-30.0) sec Sodium 137 (137-145) mmol/L Potassium 4.6 (3.5-5.1) mmol/L Chloride 108 H (98-107) mmol/L Carbon Dioxide 24 (22-30) mmol/L Anion Gap 5 mmol/L BUN 16 (7-17) mg/dL Creatinine 0.56 (0.52-1.04) mg/dL Est GFR (CKD-EPI)AfAm >90 (>60 ml/min/1.73 sqM) Est GFR (CKD-EPI)NonAf >90 (>60 ml/min/1.73 sqM) Glucose 133 H (74-99) mg/dL Calcium 9.6 (8.4-10.2) mg/dL Magnesium 1.6 (1.6-2.3) mg/dL Total Bilirubin 0.4 (0.2-1.3) mg/dL AST 19 (14-36) U/L ALT 35 (9-52) U/L Alkaline Phosphatase 66 (38-126) U/L Total Creatine Kinase 34 (30-135) U/L CK-MB (CK-2) 0.5 (0.0-2.4) ng/mL CK-MB (CK-2) Rel Index 1.5 Troponin I <0.012 (0.000-0.034) ng/mL Total Protein 6.8 (6.3-8.2) g/dL Albumin 3.9 (3.5-5.0) g/dL 02/21/19 Range/Units 13:25 WBC (3.8-10.6) k/uL RBC (3.80-5.40) m/uL Hgb (11.4-16.0) gm/dL Hct (34.0-46.0) % MCV (80.0-100.0) fL MCH (25.0-35.0) pg MCHC (31.0-37.0) g/dL RDW (11.5-15.5) % Plt Count (150-450) k/uL Neutrophils % % Lymphocytes % % Monocytes % % Eosinophils % % Basophils % % Neutrophils # (1.3-7.7) k/uL Lymphocytes # (1.0-4.8) k/uL Monocytes # (0-1.0) k/uL Eosinophils # (0-0.7) k/uL Basophils # (0-0.2) k/uL PT 9.8 (9.0-12.0) sec INR 0.9 (<1.2) APTT 23.7 (22.0-30.0) sec Sodium (137-145) mmol/L Potassium (3.5-5.1) mmol/L Chloride (98-107) mmol/L Carbon Dioxide (22-30) mmol/L Anion Gap mmol/L BUN (7-17) mg/dL Creatinine (0.52-1.04) mg/dL Est GFR (CKD-EPI)AfAm (>60 ml/min/1.73 sqM) Est GFR (CKD-EPI)NonAf (>60 ml/min/1.73 sqM) Glucose (74-99) mg/dL Calcium (8.4-10.2) mg/dL Magnesium (1.6-2.3) mg/dL Total Bilirubin (0.2-1.3) mg/dL AST (14-36) U/L ALT (9-52) U/L Alkaline Phosphatase (38-126) U/L Total Creatine Kinase (30-135) U/L CK-MB (CK-2) (0.0-2.4) ng/mL CK-MB (CK-2) Rel Index Troponin I (0.000-0.034) ng/mL Total Protein (6.3-8.2) g/dL Albumin (3.5-5.0) g/dL Disposition Clinical Impression: Upper respiratory infection, Vertigo Disposition: HOME SELF-CARE Instructions (If sedation given, give patient instructions): Vertigo (ED), Upper Respiratory Infection (ED) Prescriptions: Meclizine [Antivert] 25 mg PO TID #20 tab Is patient prescribed a controlled substance at d/c from ED?: No Referrals: Winnie Adams MD [Primary Care Provider] - 1-2 days Time of Disposition: 14:35
[2018-08-27 13:32] LABS: Basophils % (A) 0 %; Eosinophils # (A) 0.1 k/uL (0-0.7); Eosinophils % (A) 1 %; HGB 13.3 gm/dL (11.4-16.0); Lymphocytes # (A) 0.8 k/uL (1.0-4.8); Lymphocytes % (A) 8 %; MCH 29.9 pg (25.0-35.0); MCHC 33.2 g/dL (31.0-37.0); MCV 90.2 fL (80.0-100.0); Mean Platelet Volume 5.9; Monocytes # (A) 0.4 k/uL (0-1.0); Monocytes % (A) 4 %; Neutrophils % (A) 86 %; Platelet Count 232 k/uL (150-450); RBC 4.44 m/uL (3.80-5.40); RDW 12.3 % (11.5-15.5); WBC 10.4 k/uL (3.8-10.6)
[2018-08-27 13:42] LABS: INR 0.9 (<1.2); Partial Thromboplastin Time 23.7 sec (22.0-30.0); Prothrombin Time 9.8 sec (9.0-12.0)
--- NOTE | 2018-08-27 13:45 | XR ---
EXAMINATION TYPE: XR chest 2V DATE OF EXAM: 08/27/2018 COMPARISON: 03/24/2016 HISTORY: 72-year-old female with chest pain TECHNIQUE: PA and lateral views FINDINGS: Heart normal size. Aorta and pulmonary vasculature within normal limits. No consolidation or pleural effusion. IMPRESSION: No acute process seen.
--- NOTE | 2018-08-27 13:47 | CT ---
EXAMINATION TYPE: CT brain wo con DATE OF EXAM: 08/27/2018 COMPARISON: None HISTORY: 72-year-old female pain, Weakness and headache TECHNIQUE: Examination was done in axial plane without intravenous contrast. Coronal and sagittal r econstructions performed. CT DLP: 1024.4 mGycm Automated exposure control for dose reduction was used. FINDINGS: There is no evidence of acute intracranial hemorrhage, acute ischemic changes, mass, mass-effect, or extra-axial fluid collection. There is no effacement of cerebral sulci or basal subarachnoid cister ns. There is no hydrocephalus. There is no midline shift. Pink-white matter distinction is preserv ed. Normal variation with persistent CSP. Minimal age-related cerebral cortical volume loss. Some trapped fluid in the inferior right mastoid air cells. Tiny polyp or mucosal retention cyst ante rior right maxillary sinus. Orbits and globes appear intact. IMPRESSION: 1. Small amount of trapped fluid in the inferior right mastoid air cells. Correlate for any mastoid p ain to exclude mastoiditis. 2. No acute intracranial abnormality seen.
[2018-08-27 13:48] LABS: ALT 35 U/L (9-52); AST 19 U/L (14-36); Albumin 3.9 g/dL (3.5-5.0); Alkaline Phosphatase 66 U/L (38-126); Anion Gap 5 mmol/L; Blood Urea Nitrogen 16 mg/dL (7-17); Calcium 9.6 mg/dL (8.4-10.2); Carbon Dioxide 24 mmol/L (22-30); Chloride 108 mmol/L (98-107); Glucose 133 mg/dL (74-99); Magnesium 1.6 mg/dL (1.6-2.3); Potassium 4.6 mmol/L (3.5-5.1); Sodium 137 mmol/L (137-145); Total Bilirubin 0.4 mg/dL (0.2-1.3); Total Protein 6.8 g/dL (6.3-8.2)
[2018-08-27 13:56] LABS: Creatine Kinase 34 U/L (30-135)
[2018-08-27 14:09] LABS: Creatine Kinase MB 0.5 ng/mL (0.0-2.4); Troponin I <0.012 ng/mL (0.000-0.034)
[2018-08-27 14:55] VITALS: BP 130/73; PULSE 76; TEMP 97.9
== END 2018-08-27 14:55 | disposition home or self-care (01) ==
LOC: EC 11:55
DX: J06.9 Acute upper respiratory infection, unspecified (principal); R42 Dizziness and giddiness; R93.89 Abnormal findings on diagnostic imaging of other specified body structures; I10 Essential (primary) hypertension; Z79.84 Long term (current) use of oral hypoglycemic drugs; Z79.899 Other long term (current) drug therapy
CPT/HCPCS: 36415; 70450; 71046; 80053; 82550; 82553; 83735; 84484; 85025; 85610; 85730; 93005; 99285

== ENCOUNTER 2018-11-14 18:22 | Emergency (ER) | payer MEDICARE ==
[2018-11-14 18:40] VITALS: RESP 18; TEMP 98
[2018-11-14] MEDS ORDERED: SODIUM CHLORIDE 0.9% 1,000 ML IV STA (19:45)
[2018-11-14 20:14] LABS: Appearance,Urine Clear (Clear); Bilirubin,Urine Negative (Negative); Blood,Urine Negative (Negative); Color,Urine Colorless; Glucose,Urine (UA) 1+ (Negative); Ketones,Urine Negative (Negative); Leukocyte Esterase,Urine Negative (Negative); Nitrite,Urine Negative (Negative); Protein,Urine Negative (Negative); Specific Gravity,Urine 1.006 (1.001-1.035); Urobilinogen,Urine <2.0 mg/dL (<2.0)
[2018-11-14 20:18] LABS: Basophils % (A) 1 %; Eosinophils # (A) 0.2 k/uL (0-0.7); Eosinophils % (A) 2 %; HCT 41.4 % (34.0-46.0); HGB 13.7 gm/dL (11.4-16.0); Lymphocytes # (A) 1.4 k/uL (1.0-4.8); Lymphocytes % (A) 15 %; MCHC 33.1 g/dL (31.0-37.0); MCV 87.5 fL (80.0-100.0); Mean Platelet Volume 6.6; Monocytes # (A) 0.4 k/uL (0-1.0); Monocytes % (A) 4 %; Neutrophils # (A) 6.9 k/uL (1.3-7.7); Neutrophils % (A) 76 %; Platelet Count 251 k/uL (150-450); RBC 4.73 m/uL (3.80-5.40); RDW 13.5 % (11.5-15.5)
[2018-11-14 20:24] LABS: ALT 27 U/L (9-52); AST 18 U/L (14-36); Albumin 4.2 g/dL (3.5-5.0); Alkaline Phosphatase 66 U/L (38-126); Anion Gap 9 mmol/L; Blood Urea Nitrogen 19 mg/dL (7-17); Carbon Dioxide 24 mmol/L (22-30); Chloride 100 mmol/L (98-107); Glucose 260 mg/dL (74-99); Lipase 194 U/L (23-300); Potassium 5.3 mmol/L (3.5-5.1); Sodium 133 mmol/L (137-145); Total Bilirubin 0.3 mg/dL (0.2-1.3); Total Protein 6.9 g/dL (6.3-8.2)
--- NOTE | 2018-11-14 21:50 | CT ---
EXAMINATION TYPE: CT mastoid wo con DATE OF EXAM: 11/14/2018 COMPARISON: Brain 08/27/2018 HISTORY: 73-year-old female complaining of ear pain TECHNIQUE: Contiguous high resolution axial scanning of the temporal bones without IV contrast. Coron al reconstructions performed. CT DLP: 262.1 mGycm Automated exposure control for dose reduction was used. FINDINGS: 1.3 x 0.7 cm polyp or mucosal retention cyst along the anterior wall of the right maxillary sinus. 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 Orbits and globes appear intact. Slightly hypoplastic inferior mastoid air cells on both sides Mild cerumen in left external auditory canal. Some strandy debris within the outer portion of the rig ht external auditory canal. Mastoid air cells and middle ear cavities appear well pneumatized. Symmetric appearance of the internal auditory canals. Normal appearance to the middle ear ossicles and facial nerve canals on both sides. No evident abnormality of the bony labyrinths. IMPRESSION: 1. SOME MILD STRANDY DEBRIS IN THE OUTER PORTION OF THE RIGHT EXTERNAL AUDITORY CANAL AND MILD CERUME N IN THE LEFT EXTERNAL AUDITORY CANAL. 2. NO CT EVIDENCE FOR MASTOIDITIS OR OTITIS MEDIA.
--- NOTE | 2018-11-14 21:57 | CT ---
EXAMINATION TYPE: CT abdomen pelvis w con DATE OF EXAM: 11/14/2018 COMPARISON: 05/30/2018 HISTORY: 73 year-old female abdominal pain, diarrhea X 1 week TECHNIQUE: Contiguous axial scanning of the abdomen and pelvis following administration of 100 ml Iso oanh 300 IV contrast. Delayed images through the kidneys and coronal/sagittal reconstructions perform ed. CT DLP: 1079.1 mGycm Automated exposure control for dose reduction was used. FINDINGS: Heart upper limits of normal in size without pericardial effusion. Some strandy atelectasis in the lo wer lungs without pleural effusion. Small hiatal hernia. No focal liver lesion. Portal venous system is patent. Similar mild prominence to the bile duct is 7 mm which is acceptable given patient's age. Adrenal glands, kidneys, spleen, and pancreas appear within normal limits. Mild Central ankush mesentery in the upper abdomen with a couple associated borderline to mildly enlar ged mesenteric lymph nodes measuring up to 1.1 cm, referred axial image 35 and coronal image 33. Find ing similar to 05/30/2018 suggesting chronic postinflammatory etiology. Some scattered prominent fluid-filled small bowel loops in the mid and lower abdomen. Some of the loo ps in the right side of the abdomen may have mild wall thickening. Appendix not seen. Mild stool within the left side of the colon. No pericolic inflammatory change. Prominent distention of the urinary bladder to 14.8 cm. Uterus appears flattened posteriorly. Both ov porfirio are visualized. There is a 3.0 cm cystic lesion within the left ovary, increased in size from 1 .9 cm on 05/30/2015. No abnormal fluid collection in the pelvis or pelvic lymphadenopathy. Bones: Mild degenerative changes at the hips. Degenerative disc disease and facet arthropathy mid to lower lumbar spine. IMPRESSION: 1. SOME SCATTERED PROMINENT FLUID-FILLED SMALL BOWEL LOOPS IN THE RIGHT SIDE OF THE ABDOMEN COULD REP RESENT A MILD ENTERITIS. 2. MILD CENTRAL ANKUSH MESENTERY WITH A FEW ASSOCIATED BORDERLINE TO MILDLY ENLARGED LYMPH NODES MEASU RING UP TO 1.1 CM. 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 3. PROMINENT DISTENTION OF THE BLADDER UP TO NEARLY 15 CM. PLEASE ENSURE THAT THIS REPRESENTS VOLUNTA RY RETENTION. 4. ENLARGING CYSTIC LESION OF LEFT OVARY CURRENTLY MEASURING 3.0 CM VERSUS 1.9 CM ON 05/30/2018. [facility] OUTPATIENT FOLLOW-UP PELVIC ULTRASOUND TO ATTEMPT FURTHER CHARACTERIZATION AND TO DETERMINATE S UBSEQUENT FOLLOW UP IN THIS POSTMENOPAUSAL PATIENT. CYSTIC EPITHELIAL OVARIAN NEOPLASM IS IN THE DIFF ERENTIAL.
--- NOTE | 2018-11-14 22:46 | ED ---
Nausea/Vomiting/Diarrhea HPI - General Chief complaint: Nausea/Vomiting/Diarrhea Stated complaint: ear pain Time Seen by Provider: 11/14/18 18:54 Source: patient Mode of arrival: ambulatory - History of Present Illness Initial comments: The patient is a 73-year-old female who presents to the emergency room with complaint of left ear pain. The patient reports that the symptoms started yesterday. She has had bloody drainage coming from the left ear. She has been using a Q-tip to help remove the fluid. She denies any hearing changes. Does admit to mild mastoid tenderness. No reported fevers or chills. The patient also reports diarrhea for the past 4 days. Admits to multiple loose, watery stools per day. States she has been able to eat and drink. No nausea or vomi ting. Does believe that she is dehydrated and is requesting IV fluids. She denies any dark tarry stools or hematochezia. She did take an [id number]-[id number] antidiarrheal medication which has stopped her diarrhea. She admits to mild abdominal cramping. Denies any changes in her urination to include dysuria, hematuria or difficult voiding. Denies any pelvic pain. Denies recent travel or antibiotic use. There are no other alleviating, precipitating or modifying factors - Related Data Home Medications Medication Instructions Recorded Confirmed Lisinopril [Zestril] 10 mg PO DAILY 08/27/18 08/27/18 amLODIPine [Norvasc] 2.5 mg PO DAILY 08/27/18 08/27/18 glipiZIDE [Glucotrol] 5 mg PO AC-BID 08/27/18 08/27/18 metFORMIN HCL [Glucophage] 500 mg PO TID 08/27/18 08/27/18 Previous Rx's Medication Instructions Recorded Meclizine [Antivert] 25 mg PO TID #20 tab 08/27/18 Ofloxacin 0.3% Otic Soln [Floxin 10 drops LEFT EAR DAILY #10 ml 11/14/18 0.3% Otic Soln] Allergies Allergy/AdvReac Type Severity Reaction Status Date / Time No Known Allergies Allergy Verified 08/27/18 12:59 Review of Systems ROS Statement: Those systems with pertinent positive or pertinent negative responses have been documented in the HPI. ROS Other: All systems not noted in ROS Statement are negative. Past Medical History Past Medical History: Hypertension History of Any Multi-Drug Resistant Organisms: None Reported Past Surgical History: Appendectomy Past Psychological History: No Psychological Hx Reported Smoking Status: Never smoker Past Alcohol Use History: None Reported Past Drug Use History: None Reported General Exam General appearance: alert, in no apparent distress Head exam: Present: atraumatic, normocephalic, normal inspection Eye exam: Present: normal appearance, PERRL, EOMI. Absent: scleral icterus, conjunctival injection, periorbital swelling ENT exam: Present: mucous membranes moist, other (The patient's right ear canal is patent without discharge. The tympanic membrane is rosenbaum and shiny. Examin ation of the patient's left ear canal reveals mild stenosis with clumpy white discharge with mild blood streaking. The tympanic membrane appears rosenbaum with chronic scarring. No bulging) Neck exam: Present: normal inspection. Absent: tenderness, meningismus, lymphadenopathy Respiratory exam: Present: normal lung sounds bilaterally. Absent: respiratory distress, wheezes, rales, rhonchi, stridor Cardiovascular Exam: Present: regular rate, normal rhythm, normal heart sounds. Absent: systolic murmur, diastolic murmur, rubs, gallop, clicks GI/Abdominal exam: Present: soft, normal bowel sounds, other (The patient has mild periumbilical abdominal tenderness. There are no peritoneal signs to inc lude rebound, guarding or rigidity). Absent: distended, tenderness, guarding, rebound, rigid Extremities exam: Present: normal inspection, full ROM, normal capillary refill. Absent: tenderness, pedal edema, joint swelling, calf tenderness Back exam: Present: normal inspection Neurological exam: Present: alert, oriented X3, CN II-XII intact Psychiatric exam: Present: normal affect, normal mood Skin exam: Present: warm, dry, intact, normal color. Absent: rash Course Vital Signs 11/14/18 11/14/18 18:35 22:58 Temperature 98.0 F Pulse Rate 90 77 Respiratory 18 18 Rate Blood Pressure 156/67 134/65 O2 Sat by Pulse 99 100 Oximetry Medical Decision Making - Medical Decision Making Patient was placed into room 3. Evaluation of the patient's left eardrum does reveal an otitis external. Patient does have mild mastoid tenderness. I did recommend a CT of the patient's mastoids for which she did agree to. The patient does have laboratory studies performed. She does provide a urine sample. I recommended a CT of her abdomen and pelvis due to reported diarrhea. IV access is established the patient was given a liter bolus of 0.9% normal saline. She is offered medication for pain and nausea however she refused. Upon return of the results I did discuss them with the patient. I did discuss diagnosis, differential and treatment options. I did inform the patient that we will treat her left otitis external with an antibiotic ear drop. The patient did agree to this. I did write her for ofloxacin drops. The patient has not had any diarrhea while within the emergency department. She can continue to take the antidiarrheal medications at home. CT did demonstrate a markedly enlarged bladder. The patient is able to empty her bladder. She is bladder scanned and continues to retain 175 mL of urine within her bladder. Patient does state that she feels like she can void again. I informed the patient of the ovarian cyst seen on CAT scan. She is aware of the ovarian cyst. I did inform her that she must have a outpatient ultrasound performed to rule out malignancy. The patient understood this. The patient is to return to the e mergency room and should she have any new or worsening symptoms. The patient was discharged home in stable condition - Differential Diagnosis Acute diarrhea, acute otitis externa left, left ovarian cyst - Lab Data Result diagrams: 11/14/18 20:02 11/14/18 20:02 Lab Results 11/14/18 11/14/18 11/14/18 Range/Units 20:02 20:02 20:02 WBC 9.0 (3.8-10.6) k/uL RBC 4.73 (3.80-5.40) m/uL Hgb 13.7 (11.4-16.0) gm/dL Hct 41.4 (34.0-46.0) % MCV 87.5 (80.0-100.0) fL MCH 29.0 (25.0-35.0) pg MCHC 33.1 (31.0-37.0) g/dL RDW 13.5 (11.5-15.5) % Plt Count 251 (150-450) k/uL Neutrophils % 76 % Lymphocytes % 15 % Monocytes % 4 % Eosinophils % 2 % Basophils % 1 % Neutrophils # 6.9 (1.3-7.7) k/uL Lymphocytes # 1.4 (1.0-4.8) k/uL Monocytes # 0.4 (0-1.0) k/uL Eosinophils # 0.2 (0-0.7) k/uL Basophils # 0.0 (0-0.2) k/uL Sodium 133 L (137-145) mmol/L Potassium 5.3 H (3.5-5.1) mmol/L Chloride 100 (98-107) mmol/L Carbon Dioxide 24 (22-30) mmol/L Anion Gap 9 mmol/L BUN 19 H (7-17) mg/dL Creatinine 0.67 (0.52-1.04) mg/dL Est GFR (CKD-EPI)AfAm >90 (>60 ml/min/1.73 sqM) Est GFR (CKD-EPI)NonAf 89 (>60 ml/min/1.73 sqM) Glucose 260 H (74-99) mg/dL Calcium 10.0 (8.4-10.2) mg/dL Total Bilirubin 0.3 (0.2-1.3) mg/dL AST 18 (14-36) U/L ALT 27 (9-52) U/L Alkaline Phosphatase 66 (38-126) U/L Total Protein 6.9 (6.3-8.2) g/dL Albumin 4.2 (3.5-5.0) g/dL Lipase 194 (23-300) U/L Urine Color Colorless Urine Appearance Clear (Clear) Urine pH 5.0 (5.0-8.0) Ur Specific [address] 1.006 (1.001-1.035) Urine Protein Negative (Negative) Urine Glucose (UA) 1+ H (Negative) Urine Ketones Negative (Negative) Urine Blood Negative (Negative) Urine Nitrite Negative (Negative) Urine Bilirubin Negative (Negative) Urine Urobilinogen <2.0 (<2.0) mg/dL Ur Leukocyte Esterase Negative (Negative) - Radiology Data Radiology results: report reviewed Disposition Clinical Impression: Diarrhea, Otitis externa Disposition: HOME SELF-CARE Condition: Stable Instructions (If sedation given, give patient instructions): Otitis Externa (ED ), Acute Diarrhea (ED) Additional Instructions: Please follow-up with your doctor in 2-4 days. You will need an ultrasound of your uterus and ovaries. Return to the emergency room for any new or worsening symptoms Prescriptions: Ofloxacin 0.3% Otic Soln [Floxin 0.3% Otic Soln] 10 drops LEFT EAR DAILY #10 ml Is patient prescribed a controlled substance at d/c from ED?: No Referrals: Winnie Adams MD [Primary Care Provider] - 1-2 days Time of Disposition: 22:46
[2018-11-14 23:00] VITALS: BP 134/65; PULSE 77
== END 2018-11-14 22:58 | disposition home or self-care (01) ==
LOC: EC 18:22
DX: H60.92 Unspecified otitis externa, left ear (principal); R19.7 Diarrhea, unspecified; R10.9 Unspecified abdominal pain; R11.0 Nausea; N83.202 Unspecified ovarian cyst, left side; I10 Essential (primary) hypertension; Z53.20 Procedure and treatment not carried out because of patient's decision for unspecified reasons; Z79.84 Long term (current) use of oral hypoglycemic drugs; Z79.899 Other long term (current) drug therapy
CPT/HCPCS: 99284; 96360; 36415; 80053; 83690; 85025; 81003; 70486; 74177; Q9967

== ENCOUNTER 2019-02-11 19:27 | Emergency (ER) | payer MEDICARE ==
[2019-02-11 19:35] VITALS: RESP 18
[2019-02-11 20:30] LABS: Basophils % (A) 0 %; Eosinophils # (A) 0.1 k/uL (0-0.7); Eosinophils % (A) 1 %; HCT 41.8 % (34.0-46.0); HGB 13.6 gm/dL (11.4-16.0); Lymphocytes # (A) 1.6 k/uL (1.0-4.8); Lymphocytes % (A) 17 %; MCHC 32.6 g/dL (31.0-37.0); MCV 88.7 fL (80.0-100.0); Mean Platelet Volume 6.4; Monocytes # (A) 0.4 k/uL (0-1.0); Monocytes % (A) 4 %; Neutrophils # (A) 7.1 k/uL (1.3-7.7); Neutrophils % (A) 77 %; Platelet Count 240 k/uL (150-450); RBC 4.71 m/uL (3.80-5.40); RDW 12.6 % (11.5-15.5); WBC 9.3 k/uL (3.8-10.6)
[2019-02-11 20:46] LABS: ALT 24 U/L (9-52); AST 23 U/L (14-36); African American GFR (CKD) >90 (>60 ml/min/1.73 sqM); Albumin 4.1 g/dL (3.5-5.0); Alkaline Phosphatase 75 U/L (38-126); Anion Gap 11 mmol/L; Blood Urea Nitrogen 17 mg/dL (7-17); Calcium 9.7 mg/dL (8.4-10.2); Carbon Dioxide 23 mmol/L (22-30); Chloride 102 mmol/L (98-107); Glucose 238 mg/dL (74-99); Non-African American GFR(CKD) 87 (>60 ml/min/1.73 sqM); Potassium 4.8 mmol/L (3.5-5.1); Sodium 136 mmol/L (137-145); Total Bilirubin 0.2 mg/dL (0.2-1.3); Total Protein 6.9 g/dL (6.3-8.2)
[2019-02-11 21:00] LABS: Appearance,Urine Clear (Clear); Bacteria,Urine Rare /hpf; Bilirubin,Urine Negative (Negative); Blood,Urine Negative (Negative); Color,Urine Colorless; Glucose,Urine (UA) 2+ (Negative); Ketones,Urine Negative (Negative); Leukocyte Esterase,Urine Moderate (Negative); Mucus,Urine Rare /hpf; Nitrite,Urine Negative (Negative); Protein,Urine Negative (Negative); Specific Gravity,Urine 1.006 (1.001-1.035); Squamous Epithelial Cell,Urine 1 /hpf (0-4); Urobilinogen,Urine <2.0 mg/dL (<2.0); WBC,Urine 9 /hpf (0-5)
[2019-02-11] MEDS ORDERED: SODIUM CHLORIDE 0.9% 1,000 ML IV STA (21:01)
[2019-02-11] MEDS ORDERED: CEPHALEXIN 500MG STARTER PACK 4 CAP BTL PO STA (22:21)
[2019-02-11] MEDS ORDERED: CEPHALEXIN 500 MG CAP PO STA (22:21)
--- NOTE | 2019-02-11 22:27 | ED ---
General Adult HPI - General Chief complaint: Recheck/Abnormal Lab/Rx Stated complaint: High BP Time Seen by Provider: 02/11/19 19:56 Source: patient, RN notes reviewed, old records reviewed Mode of arrival: ambulatory Limitations: no limitations - History of Present Illness Initial comments: 73-year-old female patient presents to ED with chief complaint of blood pressure fluctuation and a transient period of dizziness. Patient reports that she monitors her blood pressure multiple times per day noticing fluctuating between approximately 120 and 160 systolic which is higher than her baseline. Patient also reports that she has had approximately 3 days of diarrhea. Patient has a nausea vomiting. Patient denies any other complaints. Denies any current dizziness. Systemic: Pt denies fatigue, fever/chills, rash. Pt denies weakness, night sweats, weight loss. Neuro: Pt denies headache, visual disturbances, syncope or pre-syncope. HEENT: Pt denies ocular discharge or irritation, otalgia, rhinorrhea, pharyngitis or notable lymphadenopathy. Cardiopulmonary: Pt denies chest pain, SOB, heart palpitations, dyspnea on exertion. Abdominal/GI: Pt denies abdominal pain, n/v/d. : Pt denies dysuria, burning w/ urination, frequency/urgency. Denies new onset urinary or bowel incontinence. MSK: Pt denies myalgia, loss of strength or function in extremities. Neuro: Pt denies new onset weakness, paresthesias. - Related Data Home Medications Medication Instructions Recorded Confirmed Lisinopril [Zestril] 10 mg PO DAILY 08/27/18 08/27/18 amLODIPine [Norvasc] 2.5 mg PO DAILY 08/27/18 08/27/18 glipiZIDE [Glucotrol] 5 mg PO AC-BID 08/27/18 08/27/18 metFORMIN HCL [Glucophage] 500 mg PO TID 08/27/18 08/27/18 Previous Rx's Medication Instructions Recorded Meclizine [Antivert] 25 mg PO TID #20 tab 08/27/18 Ofloxacin 0.3% Otic Soln [Floxin 10 drops LEFT EAR DAILY #10 ml 11/14/18 0.3% Otic Soln] Cephalexin [Keflex] 500 mg PO Q12HR 10 Days cap 02/11/19 Allergies Allergy/AdvReac Type Severity Reaction Status Date / Time No Known Allergies Allergy Verified 02/11/19 19:35 Review of Systems ROS Statement: Those systems with pertinent positive or pertinent negative responses have been documented in the HPI. ROS Other: All systems not noted in ROS Statement are negative. Past Medical History Past Medical History: Hypertension History of Any Multi-Drug Resistant Organisms: None Reported Past Surgical History: Appendectomy Past Psychological History: No Psychological Hx Reported Smoking Status: Never smoker Past Alcohol Use History: None Reported Past Drug Use History: None Reported General Exam - General Exam Comments Initial Comments: Constitutional: NAD, AOX3, Pt has pleasant affect. HEENT: NC/AT, trachea midline, neck supple, no lymphadenopathy. Posterior p harynx non erythematous, without exudates. External ears appear normal, without discharge. Mucous membranes moist. Eyes PERRLA, EOM intact. There is no scleral icterus. No pallor noted. Cardiopulmonary: RRR, no murmurs, rubs or gallops, no JVD noted. Lungs CTAB in anterior and posterior blank. No peripheral edema. Abdominal exam: Abdomen soft and non-distended. Abdomen non-tender to palpation in all 4 quadrants. Bowel sounds active in LLQ. No hepatosplenomegaly. No ecchymosis Neuro: CN II-XII intact. No nuchal rigidity. No raccon eyes, no robert sign, no hemotympanum. No cervical spinal tenderness. NIH 0 MSK: No posterior calf tenderness bilaterally, homans sign negative bilaterally. Posterior tibialis and radial pulse +2 bilaterally. Sensation intact in upper and lower extremities. Full active ROM in upper and lower extremities, 5/5 stregnth. Limitations: no limitations Course Vital Signs 02/11/19 02/11/19 19:29 21:18 Temperature 97.7 F Pulse Rate 99 83 Respiratory 18 18 Rate Blood Pressure 161/77 145/65 O2 Sat by Pulse 100 98 Oximetry Medical Decision Making - Medical Decision Making 73-year-old female patient comes to ED for evaluation of blood pressure fluctuations, transient period of dizziness. Patient denies any current complaints at this time. Physical exam did not display acute pathology. Laboratory investigations reveal non-impressive CBC, CMP. Lactic acid 3.3. Glucose mildly elevated at 238. UA displayed +2 glucose, mild urinary tract infection. Patient has a history of diabetes. EKG nonischemic. Patient offered CT which she declined. Patient offered admission and she declined. Patient discharged with follow-up Lilly prior tomorrow and treatment for urinary tract infection. Alternatively if condition worsens. Case discussed with Dr. Albarado. - Lab Data Result diagrams: 02/11/19 20:12 02/11/19 20:12 Lab Results 02/11/19 02/11/19 02/11/19 Range/Units 20:12 20:12 20:12 WBC 9.3 (3.8-10.6) k/uL RBC 4.71 (3.80-5.40) m/uL Hgb 13.6 (11.4-16.0) gm/dL Hct 41.8 (34.0-46.0) % MCV 88.7 (80.0-100.0) fL MCH 29.0 (25.0-35.0) pg MCHC 32.6 (31.0-37.0) g/dL RDW 12.6 (11.5-15.5) % Plt Count 240 (150-450) k/uL Neutrophils % 77 % Lymphocytes % 17 % Monocytes % 4 % Eosinophils % 1 % Basophils % 0 % Neutrophils # 7.1 (1.3-7.7) k/uL Lymphocytes # 1.6 (1.0-4.8) k/uL Monocytes # 0.4 (0-1.0) k/uL Eosinophils # 0.1 (0-0.7) k/uL Basophils # 0.0 (0-0.2) k/uL Sodium 136 L (137-145) mmol/L Potassium 4.8 (3.5-5.1) mmol/L Chloride 102 (98-107) mmol/L Carbon Dioxide 23 (22-30) mmol/L Anion Gap 11 mmol/L BUN 17 (7-17) mg/dL Creatinine 0.70 (0.52-1.04) mg/dL Est GFR (CKD-EPI)AfAm >90 (>60 ml/min/1.73 sqM) Est GFR (CKD-EPI)NonAf 87 (>60 ml/min/1.73 sqM) Glucose 238 H (74-99) mg/dL Plasma Lactic Acid [place] 3.3 H* (0.7-2.0) mmol/L Calcium 9.7 (8.4-10.2) mg/dL Total Bilirubin 0.2 (0.2-1.3) mg/dL AST 23 (14-36) U/L ALT 24 (9-52) U/L Alkaline Phosphatase 75 (38-126) U/L Total Protein 6.9 (6.3-8.2) g/dL Albumin 4.1 (3.5-5.0) g/dL Urine Color Urine Appearance (Clear) Urine pH (5.0-8.0) Ur Specific [place] (1.001-1.035) Urine Protein (Negative) Urine Glucose (UA) (Negative) Urine Ketones (Negative) Urine Blood (Negative) Urine Nitrite (Negative) Urine Bilirubin (Negative) Urine Urobilinogen (<2.0) mg/dL Ur Leukocyte Esterase (Negative) Urine WBC (0-5) /hpf Ur Squamous Epith Cells (0-4) /hpf Urine Bacteria (None) /hpf Urine Mucus (None) /hpf 02/11/19 Range/Units 20:35 WBC (3.8-10.6) k/uL RBC (3.80-5.40) m/uL Hgb (11.4-16.0) gm/dL Hct (34.0-46.0) % MCV (80.0-100.0) fL MCH (25.0-35.0) pg MCHC (31.0-37.0) g/dL RDW (11.5-15.5) % Plt Count (150-450) k/uL Neutrophils % % Lymphocytes % % Monocytes % % Eosinophils % % Basophils % % Neutrophils # (1.3-7.7) k/uL Lymphocytes # (1.0-4.8) k/uL Monocytes # (0-1.0) k/uL Eosinophils # (0-0.7) k/uL Basophils # (0-0.2) k/uL Sodium (137-145) mmol/L Potassium (3.5-5.1) mmol/L Chloride (98-107) mmol/L Carbon Dioxide (22-30) mmol/L Anion Gap mmol/L BUN (7-17) mg/dL Creatinine (0.52-1.04) mg/dL Est GFR (CKD-EPI)AfAm (>60 ml/min/1.73 sqM) Est GFR (CKD-EPI)NonAf (>60 ml/min/1.73 sqM) Glucose (74-99) mg/dL Plasma Lactic Acid [place] (0.7-2.0) mmol/L Calcium (8.4-10.2) mg/dL Total Bilirubin (0.2-1.3) mg/dL AST (14-36) U/L ALT (9-52) U/L Alkaline Phosphatase (38-126) U/L Total Protein (6.3-8.2) g/dL Albumin (3.5-5.0) g/dL Urine Color Colorless Urine Appearance Clear (Clear) Urine pH 5.0 (5.0-8.0) Ur Specific [place] 1.006 (1.001-1.035) Urine Protein Negative (Negative) Urine Glucose (UA) 2+ H (Negative) Urine Ketones Negative (Negative) Urine Blood Negative (Negative) Urine Nitrite Negative (Negative) Urine Bilirubin Negative (Negative) Urine Urobilinogen <2.0 (<2.0) mg/dL Ur Leukocyte Esterase Moderate H (Negative) Urine WBC 9 H (0-5) /hpf Ur Squamous Epith Cells 1 (0-4) /hpf Urine Bacteria Rare H (None) /hpf Urine Mucus Rare H (None) /hpf - EKG Data -: EKG Interpreted by Me (and Dr. Albarado ) EKG Comments: Ventricular rate 77, IN interval 128, QRS 74, QT/QTC 382/432. On sensory exam, normal EKG, no concern for acute ischemia. Disposition Clinical Impression: UTI (urinary tract infection) Disposition: HOME SELF-CARE Condition: Stable Instructions (If sedation given, give patient instructions): Urinary Tract Infection in Women (ED) Additional Instructions: Patient to adhere to previously discussed treatment plan and will take medication(s) as directed. Patient to follow up with PCP in 1-2 days. Patient to return to ED if symptoms do not improve. Follow-up with primary care provider tomorrow. Return to ER if condition worsens in any way. Prescriptions: Cephalexin [Keflex] 500 mg PO Q12HR 10 Days cap Is patient prescribed a controlled substance at d/c from ED?: No Referrals: Chano Reeves MD [Primary Care Provider] - 1-2 days
[2019-02-11 23:01] VITALS: BP 119/69; PULSE 70; TEMP 97.8
== END 2019-02-11 23:01 | disposition home or self-care (01) ==
LOC: EC 19:27
DX: N39.0 Urinary tract infection, site not specified (principal); I10 Essential (primary) hypertension; E11.65 Type 2 diabetes mellitus with hyperglycemia; Z79.84 Long term (current) use of oral hypoglycemic drugs; Z79.899 Other long term (current) drug therapy; Z53.20 Procedure and treatment not carried out because of patient's decision for unspecified reasons
CPT/HCPCS: 36415; 80053; 81001; 83605; 85025; 87086; 93005; 96360; 99284

== ENCOUNTER 2019-04-09 19:19 | Emergency (ER) | payer MEDICARE ==
[2019-04-09 19:30] VITALS: TEMP 98.7
[2019-04-09 21:41] LABS: Basophils % (A) 0 %; Eosinophils % (A) 0 %; HCT 39.3 % (34.0-46.0); HGB 13.4 gm/dL (11.4-16.0); Lymphocytes # (A) 0.8 k/uL (1.0-4.8); Lymphocytes % (A) 9 %; MCH 30.7 pg (25.0-35.0); MCHC 34.1 g/dL (31.0-37.0); MCV 89.8 fL (80.0-100.0); Mean Platelet Volume 5.9; Monocytes # (A) 0.3 k/uL (0-1.0); Monocytes % (A) 3 %; Neutrophils # (A) 8.5 k/uL (1.3-7.7); Neutrophils % (A) 87 %; Platelet Count 193 k/uL (150-450); RBC 4.38 m/uL (3.80-5.40); RDW 12.8 % (11.5-15.5); WBC 9.8 k/uL (3.8-10.6)
[2019-04-09 21:50] LABS: INR 0.9 (<1.2); Prothrombin Time 9.5 sec (9.0-12.0)
--- NOTE | 2019-04-09 21:50 | CT ---
EXAMINATION TYPE: CT brain wo con DATE OF EXAM: 04/09/2019 COMPARISON: 08/27/2018 HISTORY: htn Headache CT DLP: 1098.4 mGycm Automated exposure control for dose reduction was used. FINDINGS: There is mild cerebral atrophy. There is no mass effect nor midline shift. There is no sign of intrac ranial hemorrhage. Calvarium is intact. There is no sign of cerebral edema. IMPRESSION: MILD ATROPHY. NO ACUTE INTRACRANIAL ABNORMALITY. NO CHANGE.
[2019-04-09 21:57] LABS: ALT 19 U/L (9-52); AST 22 U/L (14-36); African American GFR (CKD) >90 (>60 ml/min/1.73 sqM); Albumin 3.8 g/dL (3.5-5.0); Alkaline Phosphatase 70 U/L (38-126); Anion Gap 12 mmol/L; Blood Urea Nitrogen 16 mg/dL (7-17); Calcium 9.3 mg/dL (8.4-10.2); Carbon Dioxide 21 mmol/L (22-30); Chloride 104 mmol/L (98-107); Glucose 222 mg/dL (74-99); Potassium 4.6 mmol/L (3.5-5.1); Sodium 137 mmol/L (137-145); Total Bilirubin 0.1 mg/dL (0.2-1.3); Total Protein 6.6 g/dL (6.3-8.2)
--- NOTE | 2019-04-09 22:57 | ED ---
General Adult HPI - General Chief complaint: Recheck/Abnormal Lab/Rx Stated complaint: Hypertension, headache Time Seen by Provider: 04/09/19 19:30 Source: patient Mode of arrival: EMS Limitations: no limitations - History of Present Illness Initial comments: The patient is a 73-year-old female presents emergency room with reported high blood pressures. She has a history of high blood pressure which she takes amlodipine and lisinopril. States she's been taking the medications as directed. Report any blood pressures have been higher. She normally checks her blood pressures daily. Today she had onset of blurred vision. She was also having headache. She took her blood pressure and was reported to be in the 180s. She then presented to the emergency department for evaluation. She arrives by EMS. She is denying any headaches, neck pain, fevers or chills. Denies any chest pain or shortness of breath. No abdominal pain. Denies any recent medication changes. No history of cardiac disease. There are no alleviating or modifying factors - Related Data Home Medications Medication Instructions Recorded Confirmed Lisinopril [Zestril] 10 mg PO DAILY 08/27/18 04/09/19 amLODIPine [Norvasc] 2.5 mg PO DAILY 08/27/18 04/09/19 metFORMIN HCL [Glucophage] 500 mg PO TID 08/27/18 04/09/19 Simvastatin 10 mg PO HS 04/09/19 04/09/19 glipiZIDE [Glucotrol] 10 mg PO AC-BID 04/09/19 04/09/19 Allergies Allergy/AdvReac Type Severity Reaction Status Date / Time aspirin AdvReac NOSE BLEEDS Verified 04/09/19 20:39 Review of Systems ROS Statement: Those systems with pertinent positive or pertinent negative responses have been documented in the HPI. ROS Other: All systems not noted in ROS Statement are negative. Past Medical History Past Medical History: Diabetes Mellitus, Hypertension History of Any Multi-Drug Resistant Organisms: None Reported Past Surgical History: Appendectomy Past Psychological History: No Psychological Hx Reported Smoking Status: Never smoker Past Alcohol Use History: None Reported Past Drug Use History: None Reported General Exam Limitations: no limitations General appearance: alert, in no apparent distress Head exam: Present: atraumatic, normocephalic, normal inspection Eye exam: Present: normal appearance, PERRL, EOMI. Absent: scleral icterus, conjunctival injection, periorbital swelling ENT exam: Present: normal exam, mucous membranes moist Neck exam: Present: normal inspection. Absent: tenderness, meningismus, lymphadenopathy Respiratory exam: Present: normal lung sounds bilaterally. Absent: respiratory distress, wheezes, rales, rhonchi, stridor Cardiovascular Exam: Present: normal rhythm, tachycardia, normal heart sounds. Absent: systolic murmur, diastolic murmur, rubs, gallop, clicks GI/Abdominal exam: Present: soft, normal bowel sounds. Absent: distended, tenderness, guarding, rebound, rigid Extremities exam: Present: normal inspection, full ROM, normal capillary refill. Absent: tenderness, pedal edema, joint swelling, calf tenderness Back exam: Present: normal inspection Neurological exam: Present: alert, oriented X3, CN II-XII intact Psychiatric exam: Present: normal mood, anxious Skin exam: Present: warm, dry, intact, normal color. Absent: rash Course Vital Signs 04/09/19 04/09/19 04/09/19 19:25 20:00 21:00 Temperature 98.7 F Pulse Rate 112 H Respiratory 20 Rate Blood Pressure 180/82 180/82 150/72 O2 Sat by Pulse 99 98 96 Oximetry 04/09/19 04/09/19 22:00 23:00 Temperature Pulse Rate 96 85 Respiratory 16 22 Rate Blood Pressure 157/78 159/75 O2 Sat by Pulse 96 Oximetry EKG Findings - EKG Comments: EKG Findings:: EKG demonstrates normal sinus rhythm with ventricular rate 96. UT interval 144. QRS 72. QTC 439. No acute ST segment elevations or depressions concerning for ischemic changes. Medical Decision Making - Medical Decision Making Upon arrival the patient is placed into room 18. A thorough history and physical exam is performed. A 12-lead EKG demonstrates no acute findings. Peripheral IV is established by EMS. I did recommend laboratory studies and a CT of the patient's brain because of her visual changes. Visual acuity is vamshi rakel by myself and is normal. Patient has normal peripheral vision. CBC is unremarkable. Chemistries demonstrate a glucose of 222. Troponin is negative. CT brain demonstrates no acute findings. I discussed results with the patient. Repetitive blood pressure evaluation 7 straight the patient's blood pressure to be in the 140s and 150s systolic. I discussed the results with the patient. I did offer hospital admission for further blood pressure analysis however the patient refused. She believes that she needs to see a auction block clerk for which I did agree. The patient needs have a full cardiac workup. I did recommend she see the [facility]. I will not adjust the patient's blood pressure medications at this time as her blood pressure is controlled. The patient understood this. If she has any new or worsening symptoms she should return to the spine. The patient was discharged home in stable condition - Lab Data Result diagrams: 04/09/19 21:27 04/09/19 21:27 Lab Results 04/09/19 04/09/19 04/09/19 Range/Units 21:27 21:27 21:27 WBC 9.8 (3.8-10.6) k/uL RBC 4.38 (3.80-5.40) m/uL Hgb 13.4 (11.4-16.0) gm/dL Hct 39.3 (34.0-46.0) % MCV 89.8 (80.0-100.0) fL MCH 30.7 (25.0-35.0) pg MCHC 34.1 (31.0-37.0) g/dL RDW 12.8 (11.5-15.5) % Plt Count 193 (150-450) k/uL Neutrophils % 87 % Lymphocytes % 9 % Monocytes % 3 % Eosinophils % 0 % Basophils % 0 % Neutrophils # 8.5 H (1.3-7.7) k/uL Lymphocytes # 0.8 L (1.0-4.8) k/uL Monocytes # 0.3 (0-1.0) k/uL Eosinophils # 0.0 (0-0.7) k/uL Basophils # 0.0 (0-0.2) k/uL PT 9.5 (9.0-12.0) sec INR 0.9 (<1.2) APTT 24.0 (22.0-30.0) sec Sodium 137 (137-145) mmol/L Potassium 4.6 (3.5-5.1) mmol/L Chloride 104 (98-107) mmol/L Carbon Dioxide 21 L (22-30) mmol/L Anion Gap 12 mmol/L BUN 16 (7-17) mg/dL Creatinine 0.65 (0.52-1.04) mg/dL Est GFR (CKD-EPI)AfAm >90 (>60 ml/min/1.73 sqM) Est GFR (CKD-EPI)NonAf 90 (>60 ml/min/1.73 sqM) Glucose 222 H (74-99) mg/dL Calcium 9.3 (8.4-10.2) mg/dL Total Bilirubin 0.1 L (0.2-1.3) mg/dL AST 22 (14-36) U/L ALT 19 (9-52) U/L Alkaline Phosphatase 70 (38-126) U/L Troponin I (0.000-0.034) ng/mL Total Protein 6.6 (6.3-8.2) g/dL Albumin 3.8 (3.5-5.0) g/dL TSH 0.739 (0.465-4.680) mIU/L 04/09/19 Range/Units 21:27 WBC (3.8-10.6) k/uL RBC (3.80-5.40) m/uL Hgb (11.4-16.0) gm/dL Hct (34.0-46.0) % MCV (80.0-100.0) fL MCH (25.0-35.0) pg MCHC (31.0-37.0) g/dL RDW (11.5-15.5) % Plt Count (150-450) k/uL Neutrophils % % Lymphocytes % % Monocytes % % Eosinophils % % Basophils % % Neutrophils # (1.3-7.7) k/uL Lymphocytes # (1.0-4.8) k/uL Monocytes # (0-1.0) k/uL Eosinophils # (0-0.7) k/uL Basophils # (0-0.2) k/uL PT (9.0-12.0) sec INR (<1.2) APTT (22.0-30.0) sec Sodium (137-145) mmol/L Potassium (3.5-5.1) mmol/L Chloride (98-107) mmol/L Carbon Dioxide (22-30) mmol/L Anion Gap mmol/L BUN (7-17) mg/dL Creatinine (0.52-1.04) mg/dL Est GFR (CKD-EPI)AfAm (>60 ml/min/1.73 sqM) Est GFR (CKD-EPI)NonAf (>60 ml/min/1.73 sqM) Glucose (74-99) mg/dL Calcium (8.4-10.2) mg/dL Total Bilirubin (0.2-1.3) mg/dL AST (14-36) U/L ALT (9-52) U/L Alkaline Phosphatase (38-126) U/L Troponin I <0.012 (0.000-0.034) ng/mL Total Protein (6.3-8.2) g/dL Albumin (3.5-5.0) g/dL TSH (0.465-4.680) mIU/L Disposition Clinical Impression: Hypertension Disposition: HOME SELF-CARE Condition: Stable Additional Instructions: Please follow-up with your primary care doctor in 2-4 days. Return to emergency department for new or worsening symptoms. You should also see the auction block clerk and have a full cardiac workup Is patient prescribed a controlled substance at d/c from ED?: No Referrals: Chano Reeves MD [Primary Care Provider] - 1-2 days [facility] [Provider Group] - 1-2 days Time of Disposition: 22:55
[2019-04-09 23:29] VITALS: BP 159/75; PULSE 85; RESP 22
== END 2019-04-09 23:31 | disposition home or self-care (01) ==
LOC: EC 19:19
DX: I10 Essential (primary) hypertension (principal); E11.9 Type 2 diabetes mellitus without complications; Z79.84 Long term (current) use of oral hypoglycemic drugs; Z79.899 Other long term (current) drug therapy; Z88.6 Allergy status to analgesic agent
CPT/HCPCS: 36415; 70450; 80053; 84443; 84484; 85025; 85610; 85730; 93005; 99285

== ENCOUNTER 2019-05-17 20:32 | Emergency (ER) | payer MEDICARE ==
[2019-05-17 20:36] VITALS: TEMP 98.1
[2019-05-17] MEDS ORDERED: DEXAMETHASONE SOD PHOSPHATE 10 MG/ML 1 ML VIAL IM STA (22:08)
--- NOTE | 2019-05-17 22:13 | ED ---
General Adult HPI - General Chief complaint: ENT Stated complaint: Sore Throat Time Seen by Provider: 05/17/19 20:38 Source: patient, RN notes reviewed, old records reviewed Mode of arrival: ambulatory Limitations: no limitations - History of Present Illness Initial comments: 73-year-old female patient denies he chief complaint of 2 days of sore throat. Patient reports this is his neck since in the back of her throat. Patient believes that of her vaccinations are up-to-date. Denies any other complaints. Systemic: Pt denies fatigue, fever/chills, rash. Pt denies weakness, night sweats, weight loss. Neuro: Pt denies headache, visual disturbances, syncope or pre-syncope. HEENT: Pt denies ocular discharge or irritation, otalgia, rhinorrhea, pharyn gitis or notable lymphadenopathy. Cardiopulmonary: Pt denies chest pain, SOB, heart palpitations, dyspnea on exertion. Abdominal/GI: Pt denies abdominal pain, n/v/d. : Pt denies dysuria, burning w/ urination, frequency/urgency. Denies new onset urinary or bowel incontinence. MSK: Pt denies myalgia, loss of strength or function in extremities. Neuro: Pt denies new onset weakness, paresthesias. - Related Data Home Medications Medication Instructions Recorded Confirmed Lisinopril [Zestril] 10 mg PO DAILY 08/27/18 04/09/19 amLODIPine [Norvasc] 2.5 mg PO DAILY 08/27/18 04/09/19 metFORMIN HCL [Glucophage] 500 mg PO TID 08/27/18 04/09/19 Simvastatin 10 mg PO HS 04/09/19 04/09/19 glipiZIDE [Glucotrol] 10 mg PO AC-BID 04/09/19 04/09/19 Allergies Allergy/AdvReac Type Severity Reaction Status Date / Time aspirin AdvReac NOSE BLEEDS Verified 05/17/19 20:36 Review of Systems ROS Statement: Those systems with pertinent positive or pertinent negative responses have been documented in the HPI. ROS Other: All systems not noted in ROS Statement are negative. Past Medical History Past Medical History: Diabetes Mellitus, Hypertension History of Any Multi-Drug Resistant Organisms: None Reported Past Surgical History: Appendectomy Past Psychological History: No Psychological Hx Reported Smoking Status: Never smoker Past Alcohol Use History: None Reported Past Drug Use History: None Reported General Exam - General Exam Comments Initial Comments: Constitutional: NAD, AOX3, Pt has pleasant affect. HEENT: NC/AT, trachea midline, neck supple, no lymphadenopathy. Posterior pharynx mildly erythematous, with scattered exudates. External ears appear normal, without discharge. Mucous membranes moist. Eyes PERRLA, EOM intact. There is no scleral icterus. No pallor noted. Cardiopulmonary: RRR, no murmurs, rubs or gallops, no JVD noted. Lungs CTAB in anterior and posterior blank. No peripheral edema. Abdominal exam: Abdomen soft and non-distended. Abdomen non-tender to palpation in all 4 quadrants. Bowel sounds active in LLQ. No hepatosplenomegaly. No ecchymosis Neuro: CN II-XII grossly intact. No nuchal rigidity. No raccon eyes, no robert sign, no hemotympanum. No cervical spinal tenderness. MSK: No posterior calf tenderness bilaterally, homans sign negative bilaterally. Posterior tibialis and radial pulse +2 bilaterally. Sensation intact in upper and lower extremities. Full active ROM in upper and lower extremities, 5/5 stregnth. Limitations: no limitations Course Vital Signs 05/17/19 20:34 Temperature 98.1 F Pulse Rate 107 H Respiratory 20 Rate Blood Pressure 189/74 O2 Sat by Pulse 98 Oximetry Medical Decision Making - Medical Decision Making 73-year-old female patient since he chief complaint of sore throat. Patient vital signs blood mild hypertension. Physical exam did display erythematous posterior pharynx. Cope was negative. Patient administered 1 dose of steroids for a likely viral pharyngitis and was also patient follow up with primary care provider. Case discussed with Dr. Méndez. - Lab Data Lab Results 05/17/19 Range/Units 21:32 Group A Strep Rapid Negative (Negative) Disposition Clinical Impression: Pharyngitis Disposition: HOME SELF-CARE Condition: Stable Instructions (If sedation given, give patient instructions): Strep Throat (ED) Additional Instructions: Follow-up with primary care provider as scheduled. Return to ER if condition worsens. Monitor blood sugars at home. Is patient prescribed a controlled substance at d/c from ED?: No Referrals: Chano Reeves MD [Primary Care Provider] - 1-2 days
[2019-05-17 22:44] VITALS: BP 171/75; PULSE 94; RESP 18
== END 2019-05-17 22:44 | disposition home or self-care (01) ==
LOC: EC 20:32
DX: J02.9 Acute pharyngitis, unspecified (principal); I10 Essential (primary) hypertension; E11.9 Type 2 diabetes mellitus without complications; Z88.6 Allergy status to analgesic agent; Z79.84 Long term (current) use of oral hypoglycemic drugs; Z79.899 Other long term (current) drug therapy; Z53.20 Procedure and treatment not carried out because of patient's decision for unspecified reasons
CPT/HCPCS: 87081; 87430; 99283

== ENCOUNTER 2019-06-21 14:57 | Emergency (ER) | payer MEDICARE ==
[2019-06-21] MEDS ORDERED: SODIUM CHLORIDE 0.9% 500 ML 500 ML IV STA (15:19)
--- NOTE | 2019-06-21 15:37 | ED ---
Headache HPI - General Chief Complaint: Headache Stated Complaint: reaction to medication Time Seen by Provider: 06/21/19 15:08 Mode of arrival: ambulatory Limitations: no limitations - History of Present Illness Initial Comments: patient is a 73-year-old female presenting to emergency Department with complaints of a dry mouth, lower abdominal discomfort, headache, mild nausea that has been increasing over the past few days. Patient states her leg man started her on doxycycline for rosacea and she has been taking this medication for approximately one week. Patient states her symptoms started shortly after it had been increasing. Patient states she checked her blood pressure today and it was increasing. Patient states normally her blood pressure is 120 and 130s. Patient denies fever, chills, chest pain, shortness of breath. Patient has no urinary complaints at this time. Patient states she has been drinking a lot of water horse continues to experience dry mouth. Patient states she did call her leg man over she is not able to get into the office for another couple weeks. Patient has no other complaints at this time. Upon arrival to the ER, patient's blood pressure 199/81, rest of vitals normal. - Related Data Home Medications Medication Instructions Recorded Confirmed Lisinopril [Zestril] 10 mg PO DAILY 08/27/18 04/09/19 amLODIPine [Norvasc] 2.5 mg PO DAILY 08/27/18 04/09/19 metFORMIN HCL [Glucophage] 500 mg PO TID 08/27/18 04/09/19 Simvastatin 10 mg PO HS 04/09/19 04/09/19 glipiZIDE [Glucotrol] 10 mg PO AC-BID 04/09/19 04/09/19 Allergies Allergy/AdvReac Type Severity Reaction Status Date / Time aspirin AdvReac NOSE BLEEDS Verified 06/21/19 15:00 Review of Systems ROS Statement: Those systems with pertinent positive or pertinent negative responses have been documented in the HPI. ROS Other: All systems not noted in ROS Statement are negative. Past Medical History Past Medical History: Diabetes Mellitus, Hypertension History of Any Multi-Drug Resistant Organisms: None Reported Past Surgical History: Appendectomy Past Psychological History: No Psychological Hx Reported Smoking Status: Never smoker Past Alcohol Use History: None Reported Past Drug Use History: None Reported General Exam - General Exam Comments Initial Comments: GENERAL: Well-appearing, well-nourished and in no acute distress. HEAD: Atraumatic, normocephalic. EYES: Pupils equal round and reactive to light, extraocular movements intact, sclera anicteric, conjunctiva are normal. ENT: TMs normal, nares patent, oropharynx clear without exudates. Dry mucous membranes. NECK: Normal range of motion, supple without lymphadenopathy or JVD. LUNGS: Breath sounds clear to auscultation bilaterally and equal. No wheezes rales or rhonchi. HEART: Regular rate and rhythm without murmurs, rubs or gallops. ABDOMEN: Soft, nontender, normoactive bowel sounds. No guarding, no rebound. No masses appreciated. : Deferred EXTREMITIES: Normal range of motion, no pitting or edema. No clubbing or cyanosis. NEUROLOGICAL: Cranial nerves II through XII grossly intact. Normal speech, normal gait. PSYCH: Normal mood, normal affect. SKIN: Warm, Dry, normal turgor, no rashes or lesions noted. Limitations: no limitations Course Vital Signs 06/21/19 06/21/19 06/21/19 15:01 15:17 17:10 Temperature 97.6 F 97.8 F Pulse Rate 63 57 L 60 Respiratory 16 19 17 Rate Blood Pressure 199/81 176/92 121/62 O2 Sat by Pulse 100 99 100 Oximetry Medical Decision Making - Medical Decision Making patient is a 73-year-old female presenting with a headache, dry mouth, mild nausea, increase in blood pressure for the past few days. She was started on doxycycline 1 week ago secondary to rosacea from her leg man. Patient's BP was elevated upon arrival at 199/81. Lab work shows no acute abnormalities. Patient was given fluids and Toradol and reports improvement in her symptoms. Patient's BP was rechecked and was normal at 121/62. I discussed with patient that her symptoms could be from her new medication. I recommended stopping the medication until she follows up with her leg man. Patient is agreement with this plan of care. Patient is stable for discharge at this time. Return parameters were discussed with the patient and she verbalized understanding. Case discussed with Honey. - Lab Data Result diagrams: 06/21/19 15:30 06/21/19 15:30 Lab Results 06/21/19 06/21/19 06/21/19 Range/Units 15:30 15:30 16:20 WBC 11.1 H (3.8-10.6) k/uL RBC 4.55 (3.80-5.40) m/uL Hgb 13.8 (11.4-16.0) gm/dL Hct 40.6 (34.0-46.0) % MCV 89.3 (80.0-100.0) fL MCH 30.3 (25.0-35.0) pg MCHC 33.9 (31.0-37.0) g/dL RDW 12.5 (11.5-15.5) % Plt Count 221 (150-450) k/uL Neutrophils % 85 % Lymphocytes % 10 % Monocytes % 4 % Eosinophils % 1 % Basophils % 0 % Neutrophils # 9.4 H (1.3-7.7) k/uL Lymphocytes # 1.1 (1.0-4.8) k/uL Monocytes # 0.4 (0-1.0) k/uL Eosinophils # 0.1 (0-0.7) k/uL Basophils # 0.0 (0-0.2) k/uL Sodium 135 L (137-145) mmol/L Potassium 4.5 (3.5-5.1) mmol/L Chloride 102 (98-107) mmol/L Carbon Dioxide 22 (22-30) mmol/L Anion Gap 11 mmol/L BUN 15 (7-17) mg/dL Creatinine 0.62 (0.52-1.04) mg/dL Est GFR (CKD-EPI)AfAm >90 (>60 ml/min/1.73 sqM) Est GFR (CKD-EPI)NonAf >90 (>60 ml/min/1.73 sqM) Glucose 251 H (74-99) mg/dL Calcium 9.4 (8.4-10.2) mg/dL Total Bilirubin 0.2 (0.2-1.3) mg/dL AST 20 (14-36) U/L ALT 19 (4-34) U/L Alkaline Phosphatase 76 (38-126) U/L Total Protein 6.8 (6.3-8.2) g/dL Albumin 4.1 (3.5-5.0) g/dL Urine Color Colorless Urine Appearance Clear (Clear) Urine pH 5.0 (5.0-8.0) Ur Specific [place] 1.004 (1.001-1.035) Urine Protein Negative (Negative) Urine Glucose (UA) 3+ H (Negative) Urine Ketones Negative (Negative) Urine Blood Negative (Negative) Urine Nitrite Negative (Negative) Urine Bilirubin Negative (Negative) Urine Urobilinogen <2.0 (<2.0) mg/dL Ur Leukocyte Esterase Negative (Negative) Disposition Clinical Impression: Headache Disposition: HOME SELF-CARE Condition: Stable Instructions (If sedation given, give patient instructions): Acute Headache (ED) Additional Instructions: Please return to the Emergency Department if symptoms worsen or any other concerns. Discontinue doxycycline until follow up with leg man as discussed. Continue with fluid intake. Is patient prescribed a controlled substance at d/c from ED?: No Referrals: Chano Reeves MD [Primary Care Provider] - 1-2 days
[2019-06-21 15:52] LABS: Basophils % (A) 0 %; Eosinophils # (A) 0.1 k/uL (0-0.7); Eosinophils % (A) 1 %; HCT 40.6 % (34.0-46.0); HGB 13.8 gm/dL (11.4-16.0); Lymphocytes # (A) 1.1 k/uL (1.0-4.8); Lymphocytes % (A) 10 %; MCH 30.3 pg (25.0-35.0); MCHC 33.9 g/dL (31.0-37.0); MCV 89.3 fL (80.0-100.0); Mean Platelet Volume 6.9; Monocytes # (A) 0.4 k/uL (0-1.0); Monocytes % (A) 4 %; Neutrophils # (A) 9.4 k/uL (1.3-7.7); Neutrophils % (A) 85 %; Platelet Count 221 k/uL (150-450); RBC 4.55 m/uL (3.80-5.40); RDW 12.5 % (11.5-15.5); WBC 11.1 k/uL (3.8-10.6)
[2019-06-21 15:58] LABS: ALT 19 U/L (4-34); AST 20 U/L (14-36); African American GFR (CKD) >90 (>60 ml/min/1.73 sqM); Albumin 4.1 g/dL (3.5-5.0); Alkaline Phosphatase 76 U/L (38-126); Anion Gap 11 mmol/L; Blood Urea Nitrogen 15 mg/dL (7-17); Calcium 9.4 mg/dL (8.4-10.2); Carbon Dioxide 22 mmol/L (22-30); Chloride 102 mmol/L (98-107); Glucose 251 mg/dL (74-99); Non-African American GFR(CKD) >90 (>60 ml/min/1.73 sqM); Potassium 4.5 mmol/L (3.5-5.1); Sodium 135 mmol/L (137-145); Total Bilirubin 0.2 mg/dL (0.2-1.3); Total Protein 6.8 g/dL (6.3-8.2)
[2019-06-21] MEDS ORDERED: KETOROLAC 30 MG/ML 1 ML VIAL IVP STA (16:41)
[2019-06-21 16:44] LABS: Appearance,Urine Clear (Clear); Bilirubin,Urine Negative (Negative); Blood,Urine Negative (Negative); Color,Urine Colorless; Glucose,Urine (UA) 3+ (Negative); Ketones,Urine Negative (Negative); Leukocyte Esterase,Urine Negative (Negative); Nitrite,Urine Negative (Negative); Protein,Urine Negative (Negative); Specific Gravity,Urine 1.004 (1.001-1.035); Urobilinogen,Urine <2.0 mg/dL (<2.0)
[2019-06-21 17:19] VITALS: BP 121/62; PULSE 60; RESP 17; TEMP 97.8
== END 2019-06-21 17:10 | disposition home or self-care (01) ==
LOC: EC 14:57
DX: R51 Headache (principal); R68.2 Dry mouth, unspecified; R11.0 Nausea; I10 Essential (primary) hypertension; E11.9 Type 2 diabetes mellitus without complications; Z79.84 Long term (current) use of oral hypoglycemic drugs; Z79.899 Other long term (current) drug therapy; Z88.6 Allergy status to analgesic agent
CPT/HCPCS: 99284; 96374; 96361; 36415; 80053; 85025; 81003; J1885

== ENCOUNTER 2019-07-31 19:50 | Emergency (ER) | payer MEDICARE ==
[2019-07-31] MEDS ORDERED: DIAZEPAM 5 MG/ML 2 ML INJ IM ONE (20:26)
[2019-07-31] MEDS ORDERED: LIDOCAINE 5% PATCH TOPICAL STA (20:26)
[2019-07-31] MEDS ORDERED: KETOROLAC 30 MG/ML 1 ML VIAL IM STA (20:26)
--- NOTE | 2019-07-31 21:03 | ED ---
Neck Injury/Pain HPI - General Chief Complaint: Neck Pain/Injury Stated Complaint: Stiff neck Time Seen by Provider: 07/31/19 20:02 Mode of arrival: ambulatory Limitations: no limitations - History of Present Illness Initial Comments: 73-year-old female patient presents to the emergency department today for evaluation of left-sided neck pain radiating down into her shoulder. Patient states this started yesterday morning when she woke. Patient states the muscles feel very tight. States the pain worsens with any head movement and minimally with arm movement. States that this is causing her to have a headache. Denies any blurred or double vision. Denies any dizziness or weakness. She denies any chest pain or shortness of breath. Patient denies history of similar symptoms. States she did take Tylenol about the day with minimal relief. States she applied heat with minimal relief. She denies any falls or head injury. Denies use of anticoagulants or antiplatelet medications. Patient denies any chest pain, shortness of breath, abdominal pain, nausea, vomiting, or difficulties with bowel movements or urination. - Related Data Home Medications Medication Instructions Recorded Confirmed Lisinopril [Zestril] 10 mg PO DAILY 08/27/18 04/09/19 amLODIPine [Norvasc] 2.5 mg PO DAILY 08/27/18 04/09/19 metFORMIN HCL [Glucophage] 500 mg PO TID 08/27/18 04/09/19 Simvastatin 10 mg PO HS 04/09/19 04/09/19 glipiZIDE [Glucotrol] 10 mg PO AC-BID 04/09/19 04/09/19 Allergies Allergy/AdvReac Type Severity Reaction Status Date / Time aspirin AdvReac NOSE BLEEDS Verified 06/21/19 15:00 Review of Systems ROS Statement: Those systems with pertinent positive or pertinent negative responses have been documented in the HPI. ROS Other: All systems not noted in ROS Statement are negative. Past Medical History Past Medical History: Diabetes Mellitus, Hypertension History of Any Multi-Drug Resistant Organisms: None Reported Past Surgical History: Appendectomy Past Psychological History: No Psychological Hx Reported Smoking Status: Never smoker Past Alcohol Use History: None Reported Past Drug Use History: None Reported General Exam Limitations: no limitations General appearance: alert, in no apparent distress, other (Physical well- developed, well-nourished elderly female patient in no acute distress. Vital signs upon presentation are temperature 98.2F, pulse 84, respirations 18, blood pressure 170/77, pulse ox 99% on room air.) Eye exam: Present: normal appearance, PERRL, EOMI. Absent: scleral icterus, conjunctival injection, periorbital swelling ENT exam: Present: normal exam, normal oropharynx, mucous membranes moist Neck exam: Present: normal inspection, tenderness (Tenderness noted over the upper trapezius muscles bilaterally). Absent: meningismus, full ROM (Refuses to rotate neck due to pain), lymphadenopathy Respiratory exam: Present: normal lung sounds bilaterally. Absent: respiratory distress, wheezes, rales, rhonchi, stridor Cardiovascular Exam: Present: regular rate, normal rhythm, normal heart sounds. Absent: systolic murmur, diastolic murmur, rubs, gallop, clicks GI/Abdominal exam: Present: soft, normal bowel sounds. Absent: distended, tenderness, guarding, rebound, rigid Extremities exam: Present: normal inspection, full ROM, normal capillary refill, other (Skin the upper extremities is pink, warm, dry. Cap refills less than 3 seconds. Radial pulses 2+ and equal bilaterally.). Absent: tenderness, pedal edema, joint swelling, calf tenderness Back exam: Present: normal inspection. Absent: vertebral tenderness Neurological exam: Present: alert, oriented X3, CN II-XII intact Psychiatric exam: Present: normal affect, normal mood Skin exam: Present: warm, dry, intact, normal color. Absent: rash Course Vital Signs 07/31/19 07/31/19 07/31/19 19:55 20:09 21:50 Temperature 98.2 F 98.1 F 98.9 F Pulse Rate 84 73 74 Respiratory 18 18 19 Rate Blood Pressure 170/77 166/71 150/72 O2 Sat by Pulse 99 99 Oximetry Medical Decision Making - Medical Decision Making 73-year-old female patient presents to the emergency department today for evaluation of neck pain. Patient has left-sided neck pain radiating up into her head and down to her shoulder. Physical examination did reveal muscle spasm to the upper trapezius muscles. I did offer muscle relaxer, anti-inflammatory, Lidoderm patch, patient refused these. As requested x-ray. X-ray was negative. Did discuss muscle spasm and offered treatment, patient declined prescriptions. She'll be discharged follow up with her primary care physician for recheck in 1-2 days. Return parameters were discussed in detail. She verbalizes understanding and agrees with this plan. - Radiology Data Radiology results: report reviewed, image reviewed 5 views of the cervical spine are obtained. Report was reviewed in its entirety. Impression by Dr. López shows negative cervical spine exam. Disposition Clinical Impression: Muscle spasm, Neck pain Disposition: HOME SELF-CARE Condition: Good Instructions (If sedation given, give patient instructions): Spasmodic Torticollis (ED), Muscle Spasm (ED) Additional Instructions: Take, Motrin for pain control. Perform gentle range of motion exercises. Alternate ice and heat for pain control. Follow-up with the primary care physician for recheck in 1-2 days. Return to the emergency department immediately for any new, worsening, or concerning symptoms. Is patient prescribed a controlled substance at d/c from ED?: No Referrals: Nonstaff,Physician [Primary Care Provider] - 1-2 days Time of Disposition: 21:49
--- NOTE | 2019-07-31 21:36 | XR ---
EXAMINATION TYPE: XR cervical spine comp DATE OF EXAM: 07/31/2019 COMPARISON: NONE HISTORY: Neck pain TECHNIQUE: 5 views FINDINGS: Cervical vertebra show normal alignment. Posterior elements are intact. Disc spaces are viktoria rly normal. Atlantoaxial facet joint is normal. There are no cervical ribs. IMPRESSION: Negative cervical spine exam.
[2019-07-31 21:52] VITALS: BP 150/72; PULSE 74; RESP 19; TEMP 98.9
== END 2019-07-31 22:05 | disposition home or self-care (01) ==
LOC: EC 19:50 → SUPCPDRO 19:50 → EC 22:05
DX: M62.838 Other muscle spasm (principal); E11.9 Type 2 diabetes mellitus without complications; I10 Essential (primary) hypertension; Z79.84 Long term (current) use of oral hypoglycemic drugs; Z79.899 Other long term (current) drug therapy; Z88.6 Allergy status to analgesic agent; Z53.20 Procedure and treatment not carried out because of patient's decision for unspecified reasons
CPT/HCPCS: 72050; 99283

== ENCOUNTER → 2020-05-03 | Outpatient (CLI) | payer MEDICARE ==
--- NOTE | 2020-05-03 11:45 | MM ---
Reason for exam: screening (asymptomatic). Baseline mammogram. History: Patient is postmenopausal. Physical Findings: Nurse did not find any significant physical abnormalities on exam. MG 3D Screening Mammo W/Cad Bilateral CC and MLO view(s) were taken. The breast tissue is heterogeneously dense. This may lower the sensitivity of mammography. Finding: There are typically benign vascular calcifications in both breasts. There is no discrete abnormality. These results were verbally communicated with the patient and result sheet given to the patient on 05/03/20. ASSESSMENT: Benign, BI-RAD 2 RECOMMENDATION: Routine screening mammogram of both breasts in 1 year.
== END | disposition home or self-care (01) ==
LOC: RADMAMWWP 10:32
PROVIDERS: ATTEND Internal Medicine
DX: Z12.31 Encounter for screening mammogram for malignant neoplasm of breast (principal)
CPT/HCPCS: 77063; 77067

== ENCOUNTER → 2020-10-11 | Outpatient (CLI) | payer MEDICARE | END | disposition home or self-care (01) | LOC: LABWHC1 10:19 | PROVIDERS: ATTEND Otolaryngology | DX: K11.7 Disturbances of salivary secretion (principal) | CPT/HCPCS: 36415; 85652; 86038; 86235 ==

== ENCOUNTER 2020-11-17 22:15 | Emergency (ER) | payer MEDICARE ==
[2020-11-17 22:25] VITALS: RESP 18
--- NOTE | 2020-11-17 23:03 | ED ---
Female Urogenital HPI - General Chief complaint: Urogenital Stated complaint: UTI Time Seen by Provider: 11/17/20 22:25 Source: patient Mode of arrival: ambulatory Limitations: no limitations - History of Present Illness Initial comments: 75-year-old female presented for dysuria urgency frequency. Patient states she's had dysuria urgency frequency for the past 2 days attempted to call her primary care provider and cannot get an appointment. Patient denies fevers she states she has suprapubic tenderness she states at times his right upper quadrant pain and would like her gallbladder checked out as well. Patient denies any chest pain shortness of breath back pain nausea vomiting diarrhea or rashes. She has no complaints of upper respiratory symptoms just cough or congestion. Remaining 3 systems negative upon arrival patient appears well and nontoxic no acute distress she denies history of kidney stones or history of hematuria - Related Data Home Medications Medication Instructions Recorded Confirmed lisinopriL [Zestril] 10 mg PO DAILY 08/27/18 11/17/20 metFORMIN HCL [Glucophage] 500 mg PO TID 08/27/18 11/17/20 Simvastatin 10 mg PO HS 04/09/19 11/17/20 glipiZIDE [Glucotrol] 10 mg PO AC-BID 04/09/19 11/17/20 Cholecalciferol [Vitamin D3 (25 25 mcg PO DAILY 11/17/20 11/17/20 Mcg = 1000 Iu)] LORazepam [Ativan] 1 mg PO DAILY PRN 11/17/20 11/17/20 Previous Rx's Medication Instructions Recorded Cephalexin [Keflex] 500 mg PO Q6HR 5 Days #20 cap 11/17/20 Allergies Allergy/AdvReac Type Severity Reaction Status Date / Time aspirin AdvReac NOSE BLEEDS Verified 11/17/20 23:10 Review of Systems ROS Statement: Those systems with pertinent positive or pertinent negative responses have been documented in the HPI. ROS Other: All systems not noted in ROS Statement are negative. Past Medical History Past Medical History: Diabetes Mellitus, Hypertension History of Any Multi-Drug Resistant Organisms: None Reported Past Surgical History: Appendectomy Past Psychological History: No Psychological Hx Reported Smoking Status: Never smoker Past Alcohol Use History: None Reported Past Drug Use History: None Reported General Exam - General Exam Comments Initial Comments: General: The patient is awake and alert, in no distress Eye: +3 mm pupils are equal, round and reactive to light, extra-ocular movements are intact. No nystagmus. There is normal conjunctiva bilaterally. No signs of icterus. Ears, nose, mouth and throat: There are moist mucous membranes and no oral lesions. Neck: The neck is supple, there is no tenderness or JVD. Cardiovascular: There is a regular rate and rhythm. No murmur, rub or gallop is appreciated. Respiratory: Lungs are clear to auscultation, respirations are non-labored, breath sounds are equal. No wheezes, stridor, rales, or rhonchi. Gastrointestinal: Soft, non-distended,suprapubic tenderness with mild right upper quadrant pain, abdomen is without masses or organomegaly noted. There is no rebound or guarding present. No CVA tenderness. Musculoskeletal: Normal ROM, no tenderness. Strength 5/5. Sensation intact. Radial and DP pulses equal bilaterally 2+. Neurological: A&O x 3. CN II-XII intact grossly, There are no obvious motor or sensory deficits. Coordination appears grossly intact. Speech is normal. Skin: Skin is warm and dry and no rashes or lesions are noted. Psychiatric: Cooperative, appropriate mood & affect, normal judgment. Limitations: no limitations Course Vital Signs 11/17/20 22:21 Temperature 98 F Pulse Rate 99 Respiratory 18 Rate Blood Pressure 172/80 O2 Sat by Pulse 99 Oximetry Medical Decision Making - Medical Decision Making Patient's labs are stable no leukocytosis biliary enzymes within acceptable pitts its. Ultrasound negative for acute biliary process. Patient's urinalysis is consistent with her clinical picture of suprapubic tenderness dysuria urgency frequency and patient most likely has urinary tract infection. Patient was initiated on antibiotics in the emergency department and will be discharged on Keflex. Patient is agreeable to this care plan as well as discharge at this time my attending providers agreeable to this care plan as well - Lab Data Result diagrams: 11/17/20 23:03 11/17/20 23:03 Lab Results 11/17/20 11/17/20 11/17/20 Range/Units 23:03 23:03 23:03 WBC 9.7 (3.8-10.6) k/uL RBC 4.72 (3.80-5.40) m/uL Hgb 14.2 (11.4-16.0) gm/dL Hct 41.9 (34.0-46.0) % MCV 88.7 (80.0-100.0) fL MCH 30.0 (25.0-35.0) pg MCHC 33.9 (31.0-37.0) g/dL RDW 12.3 (11.5-15.5) % Plt Count 210 (150-450) k/uL MPV 6.5 Neutrophils % 73 % Lymphocytes % 17 % Monocytes % 6 % Eosinophils % 1 % Basophils % 1 % Neutrophils # 7.1 (1.3-7.7) k/uL Lymphocytes # 1.7 (1.0-4.8) k/uL Monocytes # 0.6 (0-1.0) k/uL Eosinophils # 0.1 (0-0.7) k/uL Basophils # 0.1 (0-0.2) k/uL Sodium 134 L (137-145) mmol/L Potassium 4.4 (3.5-5.1) mmol/L Chloride 100 (98-107) mmol/L Carbon Dioxide 22 (22-30) mmol/L Anion Gap 12 mmol/L BUN 24 H (7-17) mg/dL Creatinine 0.67 (0.52-1.04) mg/dL Est GFR (CKD-EPI)AfAm >90 (>60 ml/min/1.73 sqM) Est GFR (CKD-EPI)NonAf 88 (>60 ml/min/1.73 sqM) Glucose 221 H (74-99) mg/dL Calcium 9.7 (8.4-10.2) mg/dL Total Bilirubin 0.2 (0.2-1.3) mg/dL AST 24 (14-36) U/L ALT 16 (4-34) U/L Alkaline Phosphatase 80 (38-126) U/L Total Protein 7.1 (6.3-8.2) g/dL Albumin 4.1 (3.5-5.0) g/dL Lipase 162 (23-300) U/L Urine Color Light Yellow Urine Appearance Cloudy H (Clear) Urine pH 5.0 (5.0-8.0) Ur Specific [place] 1.015 (1.001-1.035) Urine Protein Trace H (Negative) Urine Glucose (UA) Negative (Negative) Urine Ketones Negative (Negative) Urine Blood Trace H (Negative) Urine Nitrite Positive H (Negative) Urine Bilirubin Negative (Negative) Urine Urobilinogen <2.0 (<2.0) mg/dL Ur Leukocyte Esterase Large H (Negative) Urine RBC 12 H (0-5) /hpf Urine WBC 81 H (0-5) /hpf Urine WBC Clumps Few H (None) /hpf Ur Squamous Epith Cells 1 (0-4) /hpf Urine Bacteria Moderate H (None) /hpf Urine Mucus Rare H (None) /hpf Disposition Clinical Impression: UTI (urinary tract infection), Abdominal pain Disposition: HOME SELF-CARE Condition: Good Instructions (If sedation given, give patient instructions): Urinary Tract Infection in Women (ED) Additional Instructions: Please use medication as discussed. Please follow-up with family doctor in the next 2 days. Return for fevers, worsening pain/symptoms. Please return to emergency room if the symptoms increase or worsen or for any other concerns. Prescriptions: Cephalexin [Keflex] 500 mg PO Q6HR 5 Days #20 cap Is patient prescribed a controlled substance at d/c from ED?: No Referrals: Chano Reeves MD [Primary Care Provider] - 1-2 days Time of Disposition: 23:47
[2020-11-17 23:23] LABS: Basophils # (A) 0.1 k/uL (0-0.2); Basophils % (A) 1 %; Eosinophils # (A) 0.1 k/uL (0-0.7); Eosinophils % (A) 1 %; HCT 41.9 % (34.0-46.0); HGB 14.2 gm/dL (11.4-16.0); Lymphocytes # (A) 1.7 k/uL (1.0-4.8); Lymphocytes % (A) 17 %; MCHC 33.9 g/dL (31.0-37.0); MCV 88.7 fL (80.0-100.0); Mean Platelet Volume 6.5; Monocytes # (A) 0.6 k/uL (0-1.0); Monocytes % (A) 6 %; Neutrophils # (A) 7.1 k/uL (1.3-7.7); Neutrophils % (A) 73 %; Platelet Count 210 k/uL (150-450); RBC 4.72 m/uL (3.80-5.40); RDW 12.3 % (11.5-15.5); WBC 9.7 k/uL (3.8-10.6)
[2020-11-17 23:26] LABS: Appearance,Urine Cloudy (Clear); Bacteria,Urine Moderate /hpf; Bilirubin,Urine Negative (Negative); Blood,Urine Trace (Negative); Color,Urine Light Yellow; Glucose,Urine (UA) Negative (Negative); Ketones,Urine Negative (Negative); Leukocyte Esterase,Urine Large (Negative); Mucus,Urine Rare /hpf; Nitrite,Urine Positive (Negative); Protein,Urine Trace (Negative); RBC,Urine 12 /hpf (0-5); Specific Gravity,Urine 1.015 (1.001-1.035); Squamous Epithelial Cell,Urine 1 /hpf (0-4); Urobilinogen,Urine <2.0 mg/dL (<2.0); WBC,Urine 81 /hpf (0-5)
--- NOTE | 2020-11-17 23:37 | US ---
EXAMINATION TYPE: US abdomen limited DATE OF EXAM: 11/17/2020 COMPARISON: NONE CLINICAL HISTORY: RUQ pRUQ pain EXAM MEASUREMENTS: Liver Length: 13.2 cm Gallbladder Wall: 0.2 cm CBD: 0.7 cm Right Kidney: 9.9 x 4.0 x 5.2 cm Pancreas: limited views due to bowel gas Liver: intercostal imaging due to bowel gas Gallbladder: wnl Evidence for sonographic Bashir's sign: no CBD: upper limits of normal Right Kidney: wnl IMPRESSION: No focal liver defect. No gallstones or dilated ducts.
[2020-11-17 23:44] LABS: ALT 16 U/L (4-34); AST 24 U/L (14-36); African American GFR (CKD) >90 (>60 ml/min/1.73 sqM); Albumin 4.1 g/dL (3.5-5.0); Alkaline Phosphatase 80 U/L (38-126); Anion Gap 12 mmol/L; Blood Urea Nitrogen 24 mg/dL (7-17); Calcium 9.7 mg/dL (8.4-10.2); Carbon Dioxide 22 mmol/L (22-30); Chloride 100 mmol/L (98-107); Glucose 221 mg/dL (74-99); Lipase 162 U/L (23-300); Non-African American GFR(CKD) 88 (>60 ml/min/1.73 sqM); Potassium 4.4 mmol/L (3.5-5.1); Sodium 134 mmol/L (137-145); Total Bilirubin 0.2 mg/dL (0.2-1.3); Total Protein 7.1 g/dL (6.3-8.2)
[2020-11-17] MEDS ORDERED: cefTRIAXone IN SWFI 1,000 MG/10 ML SYRINGE IVP STA (23:46)
[2020-11-18] MEDS ORDERED: CEPHALEXIN 500MG STARTER PACK 4 CAP BTL PO STA (00:07)
[2020-11-18 00:29] VITALS: BP 110/71; PULSE 71; TEMP 98.7
== END 2020-11-18 00:27 | disposition home or self-care (01) ==
LOC: EC 22:15
DX: N39.0 Urinary tract infection, site not specified (principal); R10.11 Right upper quadrant pain; B96.20 Unspecified Escherichia coli [E. coli] as the cause of diseases classified elsewhere; I10 Essential (primary) hypertension; E11.9 Type 2 diabetes mellitus without complications; Z79.84 Long term (current) use of oral hypoglycemic drugs
CPT/HCPCS: 36415; 80053; 83690; 85025; 81001; 87086; 87077; 87186; 76705; 99284; 96374; J0696

== ENCOUNTER 2021-03-07 22:07 | Emergency (ER) | payer MEDICARE ==
[2021-03-07 22:15] VITALS: BP 176/78; PULSE 85; RESP 20; TEMP 97.9
[2021-03-07] MEDS ORDERED: dexAMETHasone 2 MG TAB PO STA (22:28)
[2021-03-07] MEDS ORDERED: MORPHINE SULFATE 4 MG/ML SYRINGE IM STA (22:28)
[2021-03-07] MEDS ORDERED: ACET/COD 300 MG/30 MG STARTER PACK 6 TAB BTL PO STA (22:28)
[2021-03-07] MEDS ORDERED: IBUPROFEN 600 MG TAB PO STA (22:28)
--- NOTE | 2021-03-07 22:29 | ED ---
Back Pain HPI - General Chief Complaint: Back Pain/Injury Stated Complaint: Back Pain Time Seen by Provider: 03/07/21 22:21 Source: patient, RN notes reviewed, old records reviewed Limitations: language barrier - History of Present Illness Initial Comments: This is a 75-year-old female to the ER for evaluation today. Patient presents today for evaluation in regards to acute on chronic pain back pain and neck pain. Patient states she has sciatic pain is had multiple imaging and evaluations in the past. Main complaint today is back pain which isn't taking Tylenol for without help. Patient has no new injuries here today resulting for close take having normal bowel movements and able to ambulate without difficulty Complaint: back pain Time: 03:00 Place: home Radiation: buttocks, left leg, right leg Severity: moderate Severity scale (1-10): 4 Quality: aching Consistency: intermittent Improves With: none Worsens With: none Context: unknown Associated Symptoms: denies other symptoms Treatments Prior to Arrival: acetaminophen - Related Data Home Medications Medication Instructions Recorded Confirmed lisinopriL [Zestril] 10 mg PO DAILY 08/27/18 03/07/21 metFORMIN HCL [Glucophage] 500 mg PO TID 08/27/18 03/07/21 Simvastatin 10 mg PO HS 04/09/19 03/07/21 glipiZIDE [Glucotrol] 10 mg PO AC-BID 04/09/19 03/07/21 Cholecalciferol [Vitamin D3 (25 25 mcg PO DAILY 11/17/20 03/07/21 Mcg = 1000 Iu)] LORazepam [Ativan] 1 mg PO HS PRN 11/17/20 03/07/21 Acetaminophen [Tylenol] 1,000 mg PO Q4-6H PRN 03/07/21 03/07/21 Cyanocobalamin [Vitamin B-12] 500 mcg PO DAILY 03/07/21 03/07/21 Allergies Allergy/AdvReac Type Severity Reaction Status Date / Time aspirin AdvReac NOSE BLEEDS Verified 03/07/21 22:11 STEROIDS Allergy Unknown Uncoded 03/07/21 23:02 Review of Systems ROS Statement: Those systems with pertinent positive or pertinent negative responses have been documented in the HPI. ROS Other: All systems not noted in ROS Statement are negative. Past Medical History Past Medical History: Diabetes Mellitus, Hypertension History of Any Multi-Drug Resistant Organisms: None Reported Past Surgical History: Appendectomy Past Psychological History: No Psychological Hx Reported Smoking Status: Never smoker Past Alcohol Use History: None Reported Past Drug Use History: None Reported General Exam - General Exam Comments Initial Comments: No focal neurological deficits Limitations: no limitations General appearance: alert, in no apparent distress Head exam: Present: atraumatic, normocephalic, normal inspection Eye exam: Present: normal appearance, PERRL, EOMI. Absent: scleral icterus, conjunctival injection, periorbital swelling ENT exam: Present: normal exam, mucous membranes moist Neck exam: Present: normal inspection. Absent: tenderness, meningismus, lymphadenopathy Respiratory exam: Present: normal lung sounds bilaterally. Absent: respiratory distress, wheezes, rales, rhonchi, stridor Cardiovascular Exam: Present: regular rate, normal rhythm, normal heart sounds. Absent: systolic murmur, diastolic murmur, rubs, gallop, clicks GI/Abdominal exam: Present: soft, normal bowel sounds. Absent: distended, tenderness, guarding, rebound, rigid Extremities exam: Present: normal inspection, full ROM, normal capillary refill. Absent: tenderness, pedal edema, joint swelling, calf tenderness Back exam: Present: normal inspection Neurological exam: Present: alert, oriented X3, CN II-XII intact Psychiatric exam: Present: normal affect, normal mood Skin exam: Present: warm, dry, intact, normal color. Absent: rash Course Vital Signs 03/07/21 22:12 Temperature 97.9 F Pulse Rate 85 Respiratory 20 Rate Blood Pressure 176/78 O2 Sat by Pulse 98 Oximetry - Reevaluation(s) Reevaluation #1: 03/07/21 23:55 Medical record is reviewed Reevaluation #2: 03/07/21 23:55 Patient refusing all testing here in the ER 03/07/21 23:55 Patient refusing all medication here in the ER Reevaluation #3: 03/07/21 23:55 On reevaluation difficult to ascertain where patient's objective was by coming to the hospital today, patient states that she wants to go home Medical Decision Making - Medical Decision Making 75 female with nonspecific back pain appears to be chronic in nature. Patient is discharged without finishing medical treatment for evaluation - Lab Data Lab Results 03/07/21 Range/Units 22:45 Urine Color Colorless Urine Appearance Clear (Clear) Urine pH 5.5 (5.0-8.0) Ur Specific [place] 1.007 (1.001-1.035) Urine Protein Negative (Negative) Urine Glucose (UA) Trace H (Negative) Urine Ketones Negative (Negative) Urine Blood Negative (Negative) Urine Nitrite Negative (Negative) Urine Bilirubin Negative (Negative) Urine Urobilinogen <2.0 (<2.0) mg/dL Ur Leukocyte Esterase Small H (Negative) Urine RBC <1 (0-5) /hpf Urine WBC 7 H (0-5) /hpf Ur Squamous Epith Cells <1 (0-4) /hpf Urine Mucus Rare H (None) /hpf Disposition Clinical Impression: Strain of lumbar region, Sciatica Disposition: HOME SELF-CARE Condition: Good Instructions (If sedation given, give patient instructions): Acute Low Back Pain (ED) Is patient prescribed a controlled substance at d/c from ED?: No Referrals: Nonstaff,Physician [REFERRING] - 1-2 days
[2021-03-07 23:14] LABS: Appearance,Urine Clear (Clear); Bilirubin,Urine Negative (Negative); Blood,Urine Negative (Negative); Color,Urine Colorless; Glucose,Urine (UA) Trace (Negative); Ketones,Urine Negative (Negative); Leukocyte Esterase,Urine Small (Negative); Mucus,Urine Rare /hpf; Nitrite,Urine Negative (Negative); PH, Urine 5.5 (5.0-8.0); Protein,Urine Negative (Negative); RBC,Urine <1 /hpf (0-5); Specific Gravity,Urine 1.007 (1.001-1.035); Squamous Epithelial Cell,Urine <1 /hpf (0-4); Urobilinogen,Urine <2.0 mg/dL (<2.0); WBC,Urine 7 /hpf (0-5)
== END 2021-03-07 23:45 | disposition home or self-care (01) ==
LOC: EC 22:07
DX: S39.012A Strain of muscle, fascia and tendon of lower back, initial encounter (principal); M54.30 Sciatica, unspecified side; E11.9 Type 2 diabetes mellitus without complications; I10 Essential (primary) hypertension; Z88.6 Allergy status to analgesic agent; Z88.8 Allergy status to other drugs, medicaments and biological substances; Z79.899 Other long term (current) drug therapy; Z79.84 Long term (current) use of oral hypoglycemic drugs; X58.XXXA Exposure to other specified factors, initial encounter
CPT/HCPCS: 81001; 99283

== ENCOUNTER 2021-11-08 23:26 | Emergency (ER) | payer MEDICARE ==
[2021-11-08 23:38] VITALS: RESP 18; TEMP 98.4
[2021-11-08] MEDS ORDERED: LABETALOL 5 MG/ML VIAL MDV IVP STA (23:44)
[2021-11-08] MEDS ORDERED: SODIUM CHLORIDE 0.9% 1,000 ML IV STA (23:44)
--- NOTE | 2021-11-08 23:44 | ED ---
Recheck HPI - General Chief Complaint: Recheck/Abnormal Lab/Rx Stated Complaint: Hypertension Time Seen by Provider: 11/08/21 23:41 Source: patient, EMS, RN notes reviewed, old records reviewed Mode of arrival: EMS Limitations: no limitations - History of Present Illness Initial Comments: This is a 76-year-old female DF for eval same today for evaluation regarding elevated blood pressure. Patient admits episodes of diarrhea today does admit to some mild anxiety after these events she felt dehydrated she took her blood pressure no significant elevated with an elevated heart rate she presents to the ER. Patient has no chest pain shortness breath or abdominal pain no active vomiting no active diarrhea. No other complaints noted no recent change in medications. No travel history or sick contacts. No known family feels the same MD Complaint: abnormal lab (Elevated blood pressure) -: hour(s) Returns Today for: other (Elevated blood pressure with no other complaints or symptoms) Symptoms Since Prior Visit: no new symptoms Context: planned re-check Associated Symptoms: none Treatments Prior to Arrival: other medications (Did take an extra half of her blood pressure medication) - Related Data Home Medications Medication Instructions Recorded Confirmed lisinopriL [Zestril] 10 mg PO DAILY 08/27/18 03/07/21 metFORMIN HCL [Glucophage] 500 mg PO TID 08/27/18 03/07/21 Simvastatin 10 mg PO HS 04/09/19 03/07/21 glipiZIDE [Glucotrol] 10 mg PO AC-BID 04/09/19 03/07/21 Cholecalciferol [Vitamin D3 (25 25 mcg PO DAILY 11/17/20 03/07/21 Mcg = 1000 Iu)] LORazepam [Ativan] 1 mg PO HS PRN 11/17/20 03/07/21 Acetaminophen [Tylenol] 1,000 mg PO Q4-6H PRN 03/07/21 03/07/21 Cyanocobalamin [Vitamin B-12] 500 mcg PO DAILY 03/07/21 03/07/21 Allergies Allergy/AdvReac Type Severity Reaction Status Date / Time aspirin AdvReac NOSE BLEEDS Verified 03/07/21 22:11 STEROIDS Allergy Unknown Uncoded 03/07/21 23:02 Review of Systems ROS Statement: Those systems with pertinent positive or pertinent negative responses have been documented in the HPI. ROS Other: All systems not noted in ROS Statement are negative. Past Medical History Past Medical History: Diabetes Mellitus, Hypertension History of Any Multi-Drug Resistant Organisms: None Reported Past Surgical History: Appendectomy Past Psychological History: No Psychological Hx Reported Smoking Status: Never smoker Past Alcohol Use History: None Reported Past Drug Use History: None Reported General Exam General appearance: anxious Head exam: Present: atraumatic, normocephalic, normal inspection Eye exam: Present: normal appearance, PERRL, EOMI. Absent: scleral icterus, conjunctival injection, periorbital swelling ENT exam: Present: normal exam, mucous membranes dry Neck exam: Present: normal inspection. Absent: tenderness, meningismus, lymphadenopathy Respiratory exam: Present: normal lung sounds bilaterally. Absent: respiratory distress, wheezes, rales, rhonchi, stridor Cardiovascular Exam: Present: regular rate, normal rhythm, normal heart sounds. Absent: systolic murmur, diastolic murmur, rubs, gallop, clicks GI/Abdominal exam: Present: soft, normal bowel sounds. Absent: distended, tenderness, guarding, rebound, rigid Extremities exam: Present: normal inspection, full ROM, normal capillary refill. Absent: tenderness, pedal edema, joint swelling, calf tenderness Back exam: Present: normal inspection Neurological exam: Present: alert, oriented X3, CN II-XII intact Psychiatric exam: Present: normal affect, normal mood Skin exam: Present: warm, dry, intact, normal color. Absent: rash Course Vital Signs 11/08/21 11/09/21 23:31 00:30 Temperature 98.4 F Pulse Rate 97 84 Respiratory 18 18 Rate Blood Pressure 184/125 144/72 O2 Sat by Pulse 100 98 Oximetry - Reevaluation(s) Reevaluation #1: 11/09/21 00:37 Medical records reviewed Reevaluation #2: 11/09/21 00:37 Patient's blood pressure corrects here without treatment Reevaluation #3: 11/09/21 00:37 Patient informed of results and questions answered feeling better with hydration Medical Decision Making - Medical Decision Making 76 female for elevated blood pressure dehydration and diarrhea. Symptoms resolved here in the ER feeling better with hydration blood pressure corrected with no supplemental treatment. Patient can be discharged home - EKG Data -: EKG Interpreted by Me (EKG shows sinus rhythm 88. 250 QRS 85 QTC 400) Disposition Clinical Impression: Hypertension, Dehydration Disposition: HOME SELF-CARE Condition: Good Instructions (If sedation given, give patient instructions): Hypertension (ED) Is patient prescribed a controlled substance at d/c from ED?: No Referrals: Matti Medina MD [Primary Care Provider] - 1-2 days
[2021-11-09 01:04] LABS: Basophils % (A) 0 %; Eosinophils # (A) 0.1 k/uL (0-0.7); Eosinophils % (A) 2 %; HCT 38.8 % (34.0-46.0); HGB 12.6 gm/dL (11.4-16.0); Lymphocytes # (A) 1.1 k/uL (1.0-4.8); Lymphocytes % (A) 15 %; MCHC 32.6 g/dL (31.0-37.0); Mean Platelet Volume 6.7; Monocytes # (A) 0.4 k/uL (0-1.0); Monocytes % (A) 5 %; Neutrophils # (A) 5.5 k/uL (1.3-7.7); Neutrophils % (A) 76 %; Platelet Count 206 k/uL (150-450); RBC 4.21 m/uL (3.80-5.40); RDW 12.9 % (11.5-15.5); WBC 7.2 k/uL (3.8-10.6)
[2021-11-09 01:22] LABS: ALT 15 U/L (4-34); AST 19 U/L (14-36); African American GFR (CKD) >90 (>60 ml/min/1.73 sqM); Albumin 3.4 g/dL (3.5-5.0); Alkaline Phosphatase 55 U/L (38-126); Anion Gap 5 mmol/L; Blood Urea Nitrogen 21 mg/dL (7-17); Calcium 8.8 mg/dL (8.4-10.2); Carbon Dioxide 23 mmol/L (22-30); Chloride 102 mmol/L (98-107); Glucose 198 mg/dL (74-99); Magnesium 1.5 mg/dL (1.6-2.3); Non-African American GFR(CKD) 85 (>60 ml/min/1.73 sqM); Phosphorus 3.7 mg/dL (2.5-4.5); Potassium 3.9 mmol/L (3.5-5.1); Sodium 130 mmol/L (137-145); Total Bilirubin 0.3 mg/dL (0.2-1.3); Total Protein 6.1 g/dL (6.3-8.2)
[2021-11-09 01:23] LABS: INR 0.9 (<1.2); Partial Thromboplastin Time 24.1 sec (22.0-30.0); Prothrombin Time 10.3 sec (9.0-12.0)
[2021-11-09 02:06] VITALS: BP 132/74; PULSE 89
== END 2021-11-09 02:06 | disposition home or self-care (01) ==
LOC: EC 23:26
DX: I10 Essential (primary) hypertension (principal); E86.0 Dehydration; E11.9 Type 2 diabetes mellitus without complications; Z79.84 Long term (current) use of oral hypoglycemic drugs; Z79.899 Other long term (current) drug therapy
CPT/HCPCS: 36415; 80053; 83735; 84100; 84484; 85025; 85610; 85730; 93005; 99283

== ENCOUNTER 2021-12-23 18:03 | Emergency (ER) | payer MEDICARE ==
[2021-12-23 18:12] VITALS: PULSE 95; RESP 20; TEMP 98.1
--- NOTE | 2021-12-23 19:02 | ED ---
Lower Extremity Injury HPI - General Chief Complaint: Extremity Injury, Lower Stated Complaint: toe injury Time Seen by Provider: 12/23/21 18:17 Source: patient, RN notes reviewed Mode of arrival: ambulatory Limitations: no limitations - History of Present Illness Initial Comments: Patient inadvertently stubbed her right foot on a chair earlier today and complaining of pain to the right fourth and fifth toes which radiates proximally into the distal foot. She also has some mild pain at the anterior aspect of the right ankle. Is able to ambulate with increased pain. Pain is exacerbated by palpation and movement. Alleviated by rest. No other injuries. No headache, no fever or chills, no changes in vision or hearing, no sore throat or difficulty with speech, no neck pain, no chest pain or shortness of breath, no abdominal pain, no nausea or vomiting, no changes in urination or bowel movements, no numbness or tingling, no extremity pain, no skin rashes or lesions. MD Complaint: foot injury - Related Data Home Medications Medication Instructions Recorded Confirmed lisinopriL [Zestril] 10 mg PO DAILY 08/27/18 03/07/21 metFORMIN HCL [Glucophage] 500 mg PO TID 08/27/18 03/07/21 Simvastatin 10 mg PO HS 04/09/19 03/07/21 glipiZIDE [Glucotrol] 10 mg PO AC-BID 04/09/19 03/07/21 Cholecalciferol [Vitamin D3 (25 25 mcg PO DAILY 11/17/20 03/07/21 Mcg = 1000 Iu)] LORazepam [Ativan] 1 mg PO HS PRN 11/17/20 03/07/21 Acetaminophen [Tylenol] 1,000 mg PO Q4-6H PRN 03/07/21 03/07/21 Cyanocobalamin [Vitamin B-12] 500 mcg PO DAILY 03/07/21 03/07/21 Allergies Allergy/AdvReac Type Severity Reaction Status Date / Time aspirin AdvReac NOSE BLEEDS Verified 12/23/21 18:12 STEROIDS Allergy Unknown Uncoded 12/23/21 18:12 Review of Systems ROS Statement: Those systems with pertinent positive or pertinent negative responses have been documented in the HPI. ROS Other: All systems not noted in ROS Statement are negative. Past Medical History Past Medical History: Diabetes Mellitus, Hypertension History of Any Multi-Drug Resistant Organisms: None Reported Past Surgical History: Appendectomy Past Psychological History: No Psychological Hx Reported Smoking Status: Never smoker Past Alcohol Use History: None Reported Past Drug Use History: None Reported General Exam Limitations: no limitations General appearance: alert, in no apparent distress Head exam: Present: atraumatic, normocephalic, normal inspection Eye exam: Present: normal appearance, PERRL, EOMI. Absent: scleral icterus, conjunctival injection, periorbital swelling Neck exam: Present: normal inspection, full ROM. Absent: tenderness, meningis mus, lymphadenopathy Respiratory exam: Present: normal lung sounds bilaterally. Absent: respiratory distress, wheezes, rales, rhonchi, stridor Cardiovascular Exam: Present: regular rate, normal rhythm, normal heart sounds. Absent: systolic murmur, diastolic murmur, rubs, gallop, clicks Extremities exam: Present: normal inspection, full ROM, tenderness (Patient has tenderness to the area of the right fourth metatarsophalangeal joint as well as minimally to the anterior aspect of the ankle. No crepitus. Skin integrity is maintained. Pigments are stable. Capillary refill less than 2 seconds, pedal pulses intact), normal capillary refill. Absent: joint swelling, calf tenderness Back exam: Present: normal inspection, full ROM Neurological exam: Present: alert, oriented X3, CN II-XII intact. Absent: motor sensory deficit Psychiatric exam: Present: normal affect, normal mood Skin exam: Present: warm, dry, intact, normal color. Absent: rash Course Vital Signs 12/23/21 18:10 Temperature 98.1 F Pulse Rate 95 Respiratory 20 Rate O2 Sat by Pulse 99 Oximetry Procedures - Orthopedic Splinting/Casting Injury #1 Side: right Lower Extremity Injury Location: toe (Right fourth toe) Lower Extremity Immobilizer: post-op shoe, sita tape (Right fourth and fifth toes, neurovascular status intact) Medical Decision Making - Medical Decision Making Probable sternal fracture to the proximal phalanx of the right fourth toe is read by me. Awaiting radiology interpretation. We'll treat accordingly. No other fracture noted. Osteoarthritis noted. No dislocation. We'll treat with sita taping and conservative measures. I did give follow-up with orthopedics. Patient voiced understanding. Patient was told to return to the ER for any signs or symptoms worsen. Told to return immediately if any other problems arise. All questions answered. Treatment plan discussed. Patient in agreement Every effort has been made to ensure accuracy of this dictation. However, due to the limitations of electronic medical records and dictation devices, errors in charting still occur. Medication Manager Dr. Callejas Disposition Clinical Impression: Closed fracture of phalanx of right fourth toe, Right ankle sprain Narrative: Subtle proximal phalanx fracture right fourth toe, nondisplaced, closed Disposition: HOME SELF-CARE Instructions (If sedation given, give patient instructions): Toe Fracture (ED) Additional Instructions: Follow-up with the orthopedic doctor as directed. Apply ice 20 minutes on and off for times daily for the next 48 hours. Elevate the foot when possible. Wear the Marlon wrap as directed. Return to the ER immediately if any symptoms worsen, new symptoms arise, or any other problems develop. Is patient prescribed a controlled substance at d/c from ED?: No Referrals: Matti Medina MD [Primary Care Provider] - 1-2 days
--- NOTE | 2021-12-23 19:15 | XR ---
EXAMINATION TYPE: XR ankle complete RT DATE OF EXAM: 12/23/2021 COMPARISON: NONE HISTORY: Pain TECHNIQUE: 3 views FINDINGS: Ankle mortise is anatomic. I see no fracture nor dislocation. There is plantar and Achilles calcaneal spurring. IMPRESSION: Calcaneal spurring. No fracture seen.
--- NOTE | 2021-12-23 19:17 | XR ---
EXAMINATION TYPE: XR foot complete RT DATE OF EXAM: 12/23/2021 COMPARISON: NONE HISTORY: Pain TECHNIQUE: 3 views FINDINGS: Metatarsals are intact. There is plantar calcaneal spurring. The toes appear intact. I see no evidence of fracture of the second and third toe. There is some mild arthritic change in the IP daniel ints of the toes. IMPRESSION: No acute abnormality of the right foot. No evidence of a total fracture.
== END 2021-12-23 19:15 | disposition home or self-care (01) ==
LOC: EC 18:03
DX: S92.514A Nondisplaced fracture of proximal phalanx of right lesser toe(s), initial encounter for closed fracture (principal); S93.401A Sprain of unspecified ligament of right ankle, initial encounter; I10 Essential (primary) hypertension; E11.9 Type 2 diabetes mellitus without complications; Z88.6 Allergy status to analgesic agent; Z88.8 Allergy status to other drugs, medicaments and biological substances; Z79.899 Other long term (current) drug therapy; Z79.84 Long term (current) use of oral hypoglycemic drugs; W22.03XA Walked into furniture, initial encounter
CPT/HCPCS: 99283

== ENCOUNTER 2023-06-04 22:45 | Emergency (ER) | payer MEDICARE ==
[2023-06-04 22:58] VITALS: RESP 18; TEMP 98
[2023-06-04] MEDS ORDERED: SODIUM CHLORIDE 0.9% 1,000 ML IV STA (23:37)
--- NOTE | 2023-06-05 00:24 | ED ---
General Adult HPI - General Chief complaint: Recheck/Abnormal Lab/Rx Stated complaint: High BP Time Seen by Provider: 06/04/23 23:36 Source: patient, RN notes reviewed, old records reviewed Mode of arrival: ambulatory Limitations: no limitations - History of Present Illness Initial comments: Patient Is a 77-year-old female with past medical history remarkable for hypertension, [id number] diabetes who presents emergency Department complaining of elevated blood pressures at home for last 2 days as well as diarrhea. States blood pressures been running higher than normal, systolics in the 180s and 190s. Unknown what is causing this. He has been compliant with medications, lisinopril 10 mg daily. No associated chest pain, shortness of breath, nausea, vomiting, abdominal pain. Nonbloody diarrhea present. No known sick contacts. Denies any cough. Denies any fevers. Does endorse some mild lightheadedness when the blood pressure is elevated. Otherwise has no other acute complaints at this time. Patient is feeling improved at this time. No current lightheadedness or dizziness. Presents for further evaluation. - Related Data Home Medications Medication Instructions Recorded Confirmed lisinopriL [Zestril] 10 mg PO DAILY 08/27/18 03/07/21 metFORMIN HCL [Glucophage] 500 mg PO TID 08/27/18 03/07/21 Simvastatin 10 mg PO HS 04/09/19 03/07/21 glipiZIDE [Glucotrol] 10 mg PO AC-BID 04/09/19 03/07/21 Cholecalciferol [Vitamin D3 (25 25 mcg PO DAILY 11/17/20 03/07/21 Mcg = 1000 Iu)] LORazepam [Ativan] 1 mg PO HS PRN 11/17/20 03/07/21 Acetaminophen [Tylenol] 1,000 mg PO Q4-6H PRN 03/07/21 03/07/21 Cyanocobalamin [Vitamin B-12] 500 mcg PO DAILY 03/07/21 03/07/21 Allergies Allergy/AdvReac Type Severity Reaction Status Date / Time aspirin AdvReac NOSE BLEEDS Verified 12/23/21 18:12 STEROIDS Allergy Unknown Uncoded 12/23/21 18:12 Review of Systems ROS Statement: Those systems with pertinent positive or pertinent negative responses have been documented in the HPI. Review of Systems: CONST: Denies fever EYES: Denies blurry vision ENT: Denies nasal congestion C/V: Denies Chest pain RESP: Denies shortness of breath GI: Denies abdominal pain : Denies dysuria SKIN: Denies rash. MSK: Denies joint pain. NEURO: Denies headache ROS Other: All systems not noted in ROS Statement are negative. Past Medical History Past Medical History: Diabetes Mellitus, Hypertension History of Any Multi-Drug Resistant Organisms: None Reported Past Surgical History: Appendectomy Past Psychological History: No Psychological Hx Reported Smoking Status: Never smoker Past Alcohol Use History: None Reported Past Drug Use History: None Reported General Exam - General Exam Comments Initial Comments: General: Appears in no acute distress. HEAD: Normal with no signs of head trauma. EYES: PERRLA, EOMI, conjunctiva normal, no discharge. ENT: Hearing grossly intact, normal oropharynx. RESPIRATORY: Clear breath sounds bilaterally. No wheezes, rales, or rhonchi. C/V: Regular rate and rhythm. S1 and S2 auscultated, no edema, peripheral pulses 2+ and intact throughout ABD: Abd is soft, nontender, nondistended EXT: Normal range of motion, no obvious deformity SKIN: No rashes or lesions observed on exposed skin. NEURO: Alert and oriented 4. Limitations: no limitations Course Vital Signs 06/04/23 06/05/23 06/05/23 22:51 00:03 01:24 Temperature 98.0 F Pulse Rate 91 73 79 Respiratory 18 18 18 Rate Blood Pressure 190/79 142/77 165/74 O2 Sat by Pulse 99 97 Oximetry 06/05/23 02:08 Temperature Pulse Rate 82 Respiratory 18 Rate Blood Pressure 146/77 O2 Sat by Pulse 100 Oximetry Medical Decision Making - Medical Decision Making Was pt. sent in by a medical professional or institution (, PA, FRAMING [employer]PENTER, urgent care, hospital, or [place] [facility] facility...) When possible be specific @ -No Did you speak to anyone other than the patient for history (EMS, parent, family, police, friend...)? What history was obtained from this source @ -No Did you review nursing and triage notes (agree or disagree)? Why? @ -I reviewed and agree with nursing and triage notes Were old charts reviewed (outside hosp., previous admission, EMS record, old EKG, old radiological studies, urgent care reports/EKG's, [place] [facility] facility records)? Report findings @ -Old charts reviewed Differential Diagnosis (chest pain, altered mental status, abdominal pain women, abdominal pain men, vaginal bleeding, weakness, fever, dyspnea, syncope, headache, dizziness, GI bleed, back pain, seizure, CVA, palpatations, mental health, musculoskeletal)? @ -. High Blood pressure, dehydration, infection, medication noncompliance, dehydration, this list is not all inclusive. EKG interpreted by me (3pts min.). @ -As above X-rays interpreted by me (1pt min.). @ -Chest x-ray reveals no obvious acute cardio pulmonary process. CT interpreted by me (1pt min.). @ -None done U/S interpreted by me (1pt. min.). @ -None done What testing was considered but not performed or refused? (CT, X-rays, U/S, l abs)? Why? @ -None What meds were considered but not given or refused? Why? @ -Considered antihypertensive medications however blood pressure is minimally elevated at this time. Patient is asymptomatic. Did you discuss the management of the patient with other professionals (professionals i.e. , PA, [employer]ING [employer], lab, RT, psych nurse, social work associate, nurse licensed practical, teacher, unarmed security officer, counter caser)? Give summary @ -No Was smoking cessation discussed for >3mins.? @ -No Was critical care preformed (if so, how long)? @ -No Were there social determinants of health that impacted care today? How? (Homelessness, low income, unemployed, alcoholism, drug addiction, transportation, low edu. Level, literacy, decrease access to med. care, detention, rehab)? @ -No Was there de-escalation of care discussed even if they declined (Discuss DNR or withdrawal of care, Hospice)? DNR status @ -No What co-morbidities impacted this encounter? (DM, HTN, Smoking, COPD, CAD, Cancer, CVA, ARF, Chemo, Hep., AIDS, mental health diagnosis, sleep apnea, morbid obesity)? @ -None Was patient admitted / discharged? Hospital course, mention meds given and route, prescriptions, significant lab abnormalities, going to OR and other pertinent info. @ -Based on the patient's presentation and physical exam, I'm concerned for patient's hypertension over the last 2 days. This was associated with diarrhea and therefore I am concerned for possible infectious cause or dehydration. We will obtain basic labs, viral swabs, urinalysis. Screening EKG will also be obtained. Chest x-ray will also be obtained. Patient was in agreement this plan. Patient was empirically treated with 1 L fluid bolus. Currently blood pressure is within acceptable limits. We'll continue to monitor. She is asymptomatic. EKG shows no signs of acute ischemia.Patient's laboratory studies are within acceptable limits except for mild hyperglycemia. Remainder labs within normal limits. Chest x-ray shows no obvious acute cardio pulmonary process. On reevaluation, patient remains asymptomatic in terms of her hypertension. I did discuss with her that I believe it is safer to be discharged home with close follow-up with her PCP which she was in agreement with. She'll call in the morning. I recommended keeping a blood pressure log. She was in agreement this plan. She'll continue taking her normally prescribed medications and will follow up with her PCP in the next 1-2 days. I instructed the patient to follow up with their PCP in the next 1-3 days. I explained that the patient should return to the emergency department if they experience any worsening symptoms. Strict return precautions were discussed with the patient. The patient expressed understanding of these instructions. I answer ed all questions that the patient had. The patient was discharged home in good condition with their prescriptions and follow up information. Undiagnosed new problem with uncertain prognosis? @ -No Drug Therapy requiring intensive monitoring for toxicity (Heparin, Nitro, Insulin, Cardizem)? @ -No Were any procedures done? @ -No Diagnosis/symptom? @ -Asymptomatic hypertension Acute, or Chronic, or Acute on Chronic? @ -Acute Uncomplicated (without systemic symptoms) or Complicated (systemic symptoms)? @ -Uncomplicated Side effects of treatment? @ -none Exacerbation, Progression, or Severe Exacerbation] @ -no Poses a threat to life or bodily function? @ -Unlikely - Lab Data Result diagrams: 06/04/23 00:03 06/04/23 23:54 Lab Results 06/04/23 06/04/23 06/04/23 Range/Units 00:03 00:03 23:54 WBC 7.7 (3.8-10.6) k/uL RBC 4.41 (3.80-5.40) m/uL Hgb 12.7 (11.4-16.0) gm/dL Hct 38.3 (34.0-46.0) % MCV 86.8 (80.0-100.0) fL MCH 28.8 (25.0-35.0) pg MCHC 33.2 (31.0-37.0) g/dL RDW 13.2 (11.5-15.5) % Plt Count 207 (150-450) k/uL MPV 6.8 Neutrophils % 71 % Lymphocytes % 20 % Monocytes % 6 % Eosinophils % 2 % Basophils % 0 % Neutrophils # 5.5 (1.3-7.7) k/uL Lymphocytes # 1.5 (1.0-4.8) k/uL Monocytes # 0.4 (0-1.0) k/uL Eosinophils # 0.1 (0-0.7) k/uL Basophils # 0.0 (0-0.2) k/uL Sodium 134 L (137-145) mmol/L Potassium 4.6 (3.5-5.1) mmol/L Chloride 101 (98-107) mmol/L Carbon Dioxide 21 L (22-30) mmol/L Anion Gap 12 mmol/L BUN 24 H (7-17) mg/dL Creatinine 0.65 (0.52-1.04) mg/dL Est GFR (CKD-EPI)AfAm >90 (>60 ml/min/1.73 sqM) Est GFR (CKD-EPI)NonAf 87 (>60 ml/min/1.73 sqM) Glucose 226 H (74-99) mg/dL Calcium 9.4 (8.4-10.2) mg/dL Magnesium 1.6 (1.6-2.3) mg/dL Total Bilirubin 0.4 (0.2-1.3) mg/dL AST 24 (14-36) U/L ALT 19 (4-34) U/L Alkaline Phosphatase 50 (38-126) U/L Total Protein 6.7 (6.3-8.2) g/dL Albumin 3.9 (3.5-5.0) g/dL Urine Color Urine Appearance (Clear) Urine pH (5.0-8.0) Ur Specific Eugene (1.001-1.035) Urine Protein (Negative) Urine Glucose (UA) (Negative) Urine Ketones (Negative) Urine Blood (Negative) Urine Nitrite (Negative) Urine Bilirubin (Negative) Urine Urobilinogen (<2.0) mg/dL Ur Leukocyte Esterase (Negative) Influenza Type A (PCR) Not Detected (Not Detectd) Influenza Type B (PCR) Not Detected (Not Detectd) RSV (PCR) Not Detected (Not Detectd) SARS-CoV-2 (PCR) Not Detected (Not Detectd) 06/05/23 Range/Units 01:13 WBC (3.8-10.6) k/uL RBC (3.80-5.40) m/uL Hgb (11.4-16.0) gm/dL Hct (34.0-46.0) % MCV (80.0-100.0) fL MCH (25.0-35.0) pg MCHC (31.0-37.0) g/dL RDW (11.5-15.5) % Plt Count (150-450) k/uL MPV Neutrophils % % Lymphocytes % % Monocytes % % Eosinophils % % Basophils % % Neutrophils # (1.3-7.7) k/uL Lymphocytes # (1.0-4.8) k/uL Monocytes # (0-1.0) k/uL Eosinophils # (0-0.7) k/uL Basophils # (0-0.2) k/uL Sodium (137-145) mmol/L Potassium (3.5-5.1) mmol/L Chloride (98-107) mmol/L Carbon Dioxide (22-30) mmol/L Anion Gap mmol/L BUN (7-17) mg/dL Creatinine (0.52-1.04) mg/dL Est GFR (CKD-EPI)AfAm (>60 ml/min/1.73 sqM) Est GFR (CKD-EPI)NonAf (>60 ml/min/1.73 sqM) Glucose (74-99) mg/dL Calcium (8.4-10.2) mg/dL Magnesium (1.6-2.3) mg/dL Total Bilirubin (0.2-1.3) mg/dL AST (14-36) U/L ALT (4-34) U/L Alkaline Phosphatase (38-126) U/L Total Protein (6.3-8.2) g/dL Albumin (3.5-5.0) g/dL Urine Color Colorless Urine Appearance Clear (Clear) Urine pH 5.0 (5.0-8.0) Ur Specific Eugene 1.006 (1.001-1.035) Urine Protein Negative (Negative) Urine Glucose (UA) 1+ H (Negative) Urine Ketones Negative (Negative) Urine Blood Negative (Negative) Urine Nitrite Negative (Negative) Urine Bilirubin Negative (Negative) Urine Urobilinogen <2.0 (<2.0) mg/dL Ur Leukocyte Esterase Negative (Negative) Influenza Type A (PCR) (Not Detectd) Influenza Type B (PCR) (Not Detectd) RSV (PCR) (Not Detectd) SARS-CoV-2 (PCR) (Not Detectd) - EKG Data -: EKG Interpreted by Me EKG Comments: 12-lead Electrocardiogram Interpretation Note EKG was reviewed and interpreted by myself. 12-lead ECG performed at 2352 is interpreted by me as revealing normal sinus rhythm with frequent PACs first- degree AV block. At a rate of 80 beats per minute. Zullinger is normal. NM interval is 220 ms, QRS duration is 83 ms, QTc is 370 ms.. There were no ST or T wave abnormalities to suggest myocardial ischemia or injury. R wave progression across the precordium was satisfactory. By my interpretation this EKG is non-diagnostic for acute ischemia. Disposition Clinical Impression: Asymptomatic hypertension Disposition: HOME SELF-CARE Condition: Good Instructions (If sedation given, give patient instructions): Hypertension (ED) Is patient prescribed a controlled substance at d/c from ED?: No Referrals: Matti Medina MD [Primary Care Provider] - 1-2 days Time of Disposition: 01:51
[2023-06-05 00:44] LABS: Basophils % (A) 0 %; Eosinophils # (A) 0.1 k/uL (0-0.7); Eosinophils % (A) 2 %; HCT 38.3 % (34.0-46.0); HGB 12.7 gm/dL (11.4-16.0); Lymphocytes # (A) 1.5 k/uL (1.0-4.8); Lymphocytes % (A) 20 %; MCH 28.8 pg (25.0-35.0); MCHC 33.2 g/dL (31.0-37.0); MCV 86.8 fL (80.0-100.0); Mean Platelet Volume 6.8; Monocytes # (A) 0.4 k/uL (0-1.0); Monocytes % (A) 6 %; Neutrophils # (A) 5.5 k/uL (1.3-7.7); Neutrophils % (A) 71 %; Platelet Count 207 k/uL (150-450); RBC 4.41 m/uL (3.80-5.40); RDW 13.2 % (11.5-15.5); WBC 7.7 k/uL (3.8-10.6)
[2023-06-05 00:50] LABS: ALT 19 U/L (4-34); AST 24 U/L (14-36); African American GFR (CKD) >90 (>60 ml/min/1.73 sqM); Albumin 3.9 g/dL (3.5-5.0); Alkaline Phosphatase 50 U/L (38-126); Anion Gap 12 mmol/L; Blood Urea Nitrogen 24 mg/dL (7-17); Calcium 9.4 mg/dL (8.4-10.2); Carbon Dioxide 21 mmol/L (22-30); Chloride 101 mmol/L (98-107); Glucose 226 mg/dL (74-99); Magnesium 1.6 mg/dL (1.6-2.3); Non-African American GFR(CKD) 87 (>60 ml/min/1.73 sqM); Sodium 134 mmol/L (137-145); Total Bilirubin 0.4 mg/dL (0.2-1.3); Total Protein 6.7 g/dL (6.3-8.2)
[2023-06-05 01:18] LABS: Potassium 4.6 mmol/L (3.5-5.1)
--- NOTE | 2023-06-05 01:19 | XR ---
EXAM: XR Chest, 1 View CLINICAL HISTORY: ITS.REASON XR Reason: htn TECHNIQUE: Frontal view of the chest. COMPARISON: Chest x-ray August 27, 2018 FINDINGS: Lungs: Pulmonary vascular congestion without overt edema. No consolidation. Pleural space: No pleural effusion. No pneumothorax. Heart: Cardiomegaly. IMPRESSION: 1. Cardiomegaly. 2. Pulmonary vascular congestion without overt edema.
[2023-06-05 01:42] LABS: Appearance,Urine Clear (Clear); Bilirubin,Urine Negative (Negative); Blood,Urine Negative (Negative); Color,Urine Colorless; Glucose,Urine (UA) 1+ (Negative); Ketones,Urine Negative (Negative); Leukocyte Esterase,Urine Negative (Negative); Nitrite,Urine Negative (Negative); Protein,Urine Negative (Negative); Specific Gravity,Urine 1.006 (1.001-1.035); Urobilinogen,Urine <2.0 mg/dL (<2.0)
[2023-06-05 02:30] VITALS: BP 146/77; PULSE 82
== END 2023-06-05 02:11 | disposition home or self-care (01) ==
LOC: EC 22:45
DX: I10 Essential (primary) hypertension (principal); E11.9 Type 2 diabetes mellitus without complications; Z79.84 Long term (current) use of oral hypoglycemic drugs; Z79.899 Other long term (current) drug therapy; Z88.6 Allergy status to analgesic agent; Z88.8 Allergy status to other drugs, medicaments and biological substances; Z20.822 Contact with and (suspected) exposure to COVID-19
CPT/HCPCS: 36415; 71045; 80053; 81003; 83735; 85025; 87636; 93005; 96360; 99284

== ENCOUNTER 2023-06-06 19:04 | Emergency (ER) | payer MEDICARE ==
[2023-06-06 19:16] VITALS: TEMP 98.3
--- NOTE | 2023-06-06 23:19 | ED ---
General Adult HPI - General Chief complaint: Nausea/Vomiting/Diarrhea Stated complaint: Hypertension Time Seen by Provider: 06/06/23 22:40 Source: patient, family Mode of arrival: ambulatory Limitations: no limitations - History of Present Illness Initial comments: Dictation was produced using [employer] dictation software. please excuse any grammatical, word or spelling errors. Chief Complaint: 77-year-old female presents with high blood pressure History of Present Illness: 87-year-old female she checked her blood pressure today and made her upset. She was here in emergency department she states recently for same complaint. She made an appointment with a primary care doctor however became upset that her liver was pushed back to Week. Denies any chest pain. No headache. No strokelike symptoms. No chest pain or shortness of breath. Patient takes lisinopril. She's been doubling up on her medications and instruction from medical professional. The ROS documented in this emergency department record has been reviewed and confirmed by me. Those systems with pertinent positive or negative responses have been documented in the HPI. All other systems are other negative and/or noncontributory. - Related Data Home Medications Medication Instructions Recorded Confirmed lisinopriL [Zestril] 10 mg PO BID 08/27/18 06/06/23 metFORMIN HCL [Glucophage] 750 mg PO TID 08/27/18 06/06/23 Simvastatin 10 mg PO HS 04/09/19 06/06/23 glipiZIDE [Glucotrol] 10 mg PO BID 04/09/19 06/06/23 Cholecalciferol [Vitamin D3 (25 25 mcg PO DAILY 11/17/20 06/06/23 Mcg = 1000 Iu)] LORazepam [Ativan] 1 mg PO HS 11/17/20 06/06/23 Cyanocobalamin (Vitamin B-12) 1,000 mcg PO DAILY 06/06/23 06/06/23 [Vitamin B-12] Loperamide [Imodium] 2 - 4 mg PO QID PRN 06/06/23 06/06/23 [place] 3-6-9 1005mg 1,005 mg PO DAILY 06/06/23 06/06/23 Allergies Allergy/AdvReac Type Severity Reaction Status Date / Time aspirin AdvReac NOSE BLEEDS Verified 06/06/23 23:08 STEROIDS Allergy Unknown Uncoded 06/06/23 23:08 Review of Systems ROS Statement: Those systems with pertinent positive or pertinent negative responses have been documented in the HPI. ROS Other: All systems not noted in ROS Statement are negative. Past Medical History Past Medical History: Diabetes Mellitus, Hypertension History of Any Multi-Drug Resistant Organisms: None Reported Past Surgical History: Appendectomy Past Psychological History: No Psychological Hx Reported Smoking Status: Never smoker Past Alcohol Use History: None Reported Past Drug Use History: None Reported General Exam - General Exam Comments Initial Comments: PHYSICAL EXAM: General Impression: Alert and oriented x3, not in acute distress HEENT: Normocephalic atraumatic, extra-ocular movements intact, pupils equal and reactive to light bilaterally, mucous membranes moist. Cardiovascular: Heart regular rate and rhythm Chest: Able to complete full sentences, no retractions, no tachypnea Abdomen: abdomen soft, non-tender, non-distended, no organomegaly Musculoskeletal: Pulses present and equal in all extremities, no peripheral edema Motor: no focal deficits noted Neurological: CN II-XII grossly intact, no focal motor or sensory deficits noted Skin: Intact with no visualized rashes Psych: Normal affect and mood Limitations: no limitations Course Vital Signs 06/06/23 19:13 Temperature 98.3 F Pulse Rate 116 H Respiratory 20 Rate Blood Pressure 200/73 O2 Sat by Pulse 98 Oximetry Medical Decision Making - Medical Decision Making Was pt. sent in by a medical professional or institution (, PA, LEVEE SUPERINTENDENT, urgent care, hospital, or [place] [facility]...) When possible be specific @ -No Did you speak to anyone other than the patient for history (EMS, parent, family, police, friend...)? What history was obtained from this source @ -No Did you review nursing and triage notes (agree or disagree)? Why? @ -I reviewed and agree with nursing and triage notes Were old charts reviewed (outside hosp., previous admission, EMS record, old EKG, old radiological studies, urgent care reports/EKG's, [place] [facility] records)? Report findings @ -No old charts were reviewed Differential Diagnosis (chest pain, altered mental status, abdominal pain women, abdominal pain men, vaginal bleeding, musculoskeletal, weakness, fever, dyspnea, syncope, headache, dizziness, GI bleed, back pain, seizure, CVA, palpatations, mental health)? @ -not applicable EKG interpreted by me (3pts min.). @ -None done X-rays interpreted by me (1pt min.). @ -None done CT interpreted by me (1pt min.). @ -None done U/S interpreted by me (1pt. min.). @ -None done What testing was considered but not performed or refused? (CT, X-rays, U/S, labs)? Why? @ -None What meds were considered but not given or refused? Why? @ -None Did you discuss the management of the patient with other professionals (professionals i.e. , PA, LEVEE SUPERINTENDENT, lab, RT, psych nurse, social and human services assistant, intellectual property lawyer, teacher, parcel post officer, manager case management)? Give summary @ -No Was smoking cessation discussed for >3mins.? @ -No Was critical care preformed (if so, how long)? @ -No Were there social determinants of health that impacted care today? How? (Homelessness, low income, unemployed, alcoholism, drug addiction, transportatio n, low edu. Level, literacy, decrease access to med. care, fdc, rehab)? @ -No Was there de-escalation of care discussed even if they declined (Discuss DNR or withdrawal of care, Hospice)? DNR status @ -No What co-morbidities impacted this encounter? (DM, HTN, Smoking, COPD, CAD, Cancer, CVA, ARF, Chemo, Hep., AIDS, mental health diagnosis, sleep apnea, morbid obesity)? @ -None Was patient admitted / discharged? Hospital course, mention meds given and route, prescriptions, significant lab abnormalities, going to OR and other pertinent info. @ -7-year-old female presents emergency department for asymptomatic hypertension. She has established history of hypertension. Vital signs upon arrival shows blood pressure of 200/73, heart rate of 116. Patient will return at bedside. Physical examination is benign. Patient has no high-risk features patient denies any headache, chest pain or shortness of breath shortly symptoms. Patient discharged she is told to maintain appointment with her primary care doctor. Undiagnosed new problem with uncertain prognosis? @ -No Drug Therapy requiring intensive monitoring for toxicity (Heparin, Nitro, Insulin, Cardizem)? @ -No Were any procedures done? @ -No Diagnosis/symptom? Acute, or Chronic, or Acute on Chronic? Uncomplicated (without systemic symptoms) or Complicated (systemic symptoms)? @ -Asymptomatic hypertension Side effects of treatment? @ -No Exacerbation, Progression, or Severe Exacerbation? @ -No Poses a threat to life or bodily function? How? (Chest pain, [place], [place], pneumonia, PE, COPD, DKA, ARF, appy, cholecystitis, CVA, Diverticulitis, Homicidal, Suicidal, threat to staff... and all critical care pts) @ -No Disposition Clinical Impression: Asymptomatic hypertension Disposition: HOME SELF-CARE Condition: Good Instructions (If sedation given, give patient instructions): Hypertension (ED) Is patient prescribed a controlled substance at d/c from ED?: No Referrals: Chano Reeves MD [Primary Care Provider] - 1-2 days Time of Disposition: 23:19
[2023-06-06 23:42] VITALS: BP 165/85; PULSE 94; RESP 16
== END 2023-06-06 23:32 | disposition home or self-care (01) ==
LOC: EC 19:04
DX: I10 Essential (primary) hypertension (principal); E11.9 Type 2 diabetes mellitus without complications; Z79.84 Long term (current) use of oral hypoglycemic drugs; Z79.899 Other long term (current) drug therapy; Z88.6 Allergy status to analgesic agent; Z88.8 Allergy status to other drugs, medicaments and biological substances
CPT/HCPCS: 99283

== ENCOUNTER → 2023-12-11 | Outpatient (CLI) | payer BC, MEDICARE ==
[2023-12-11 15:56] LABS: HCT 37.2 % (37.2-46.3); MCH 27.6 pg (27.0-32.0); MCHC 32.3 g/dL (32.0-37.0); MCV 85.7 FL (80.0-97.0); Mean Platelet Volume 8.8 FL (9.5-12.2); NRBC Per 100 WBC 0 X 10*3/uL (0.00-0.01); Platelet Count 227 X 10*3/uL (140-440); RBC 4.34 X 10*6/uL (4.10-5.20); WBC 8.22 X 10*3/uL (4.50-10.00)
[2023-12-11 16:15] LABS: NT-Pro-B-Type Natriuretic Pept 470 pg/mL (0-450)
[2023-12-11 16:20] LABS: Chol/HDL Ratio 2.43 Ratio
[2023-12-11 16:21] LABS: ALT 29 U/L (8-44); AST 22 U/L (13-35); Albumin 4.1 g/dL (3.8-4.9); Albumin/Globulin Ratio 1.71 Ratio (1.60-3.17); Alkaline Phosphatase 62 U/L (41-126); BUN/Creat Ratio 24.57 Ratio (12.00-20.00); Blood Urea Nitrogen 17.2 mg/dL (9.0-27.0); Calcium 9.5 mg/dL (8.7-10.3); Carbon Dioxide 21.9 mmol/L (21.6-31.8); Chloride 105 mmol/L (96-109); Globulin 2.4 g/dL (1.6-3.3); Glucose 151 mg/dL (70-110); Potassium 4.4 mmol/L (3.5-5.5); Sodium 139 mmol/L (135-145); Total Bilirubin <0.2 mg/dL (0.3-1.2); Total Protein 6.5 g/dL (6.2-8.2)
== END | disposition home or self-care (01) ==
LOC: LABWHC1 10:11
PROVIDERS: ATTEND Student in an Organized Health Care Education/Training Program
DX: I10 Essential (primary) hypertension (principal); E11.9 Type 2 diabetes mellitus without complications; E78.5 Hyperlipidemia, unspecified
CPT/HCPCS: 36415; 80053; 80061; 83036; 83880; 84443; 85027